=== PATIENT | male | born 1960 | race Caucasian/White ===

== ENCOUNTER 2025-08-16 22:24 | Emergency (ER) | payer BC, SELFPAY ==
[2025-08-16 22:27] VITALS: BP 149/89
[2025-08-16 23:08] VITALS: BP 146/89
[2025-08-16 23:09] VITALS: BP 148/86
[2025-08-16 23:11] VITALS: BMI 30.5
--- NOTE | 2025-08-16 23:41 | ED.GENMED ---
History of Present Illness
General
Chief Complaint: Chest Pain
Source: patient
Exam Limitations: none
Time Seen by Provider: 08/16/25 23:06
Nursing documentation reviewed up to this point in time: agreed with
History of Present Illness
History of Present Illness:
65-year-old male with a past medical history of GERD, Adams's esophagus, presents to the ER today with concerns of burning in his chest for the past 7 days. He reports that occurs intermittently and is worse with exertion. It does not resolve at
rest. It is not related to eating. He is able to eat and drink without any difficulty. He denies any dysphagia. The burning sensation is located in the center of the chest and worsens at night especially when lying to left side. Patient
experiences it every morning and has persisted throughout each day. Patient reports that he is tried multiple antacids without relief. Patient denies any associated vomiting, abdominal pain, diarrhea, constipation. Patient denies any shortness of
breath. He denies any coughing, fevers, or upper respiratory symptoms. He denies any numbness or tingling in his arms, swelling in his legs. He follows with [facility] and is due for a scope next year. The patient takes famotidine
and pantoprazole but no other medications. He does smoke tobacco products every day. He does not regularly follow with his primary care provider. He denies any paresthesias. He denies any back pain, neck pain.
Past History
Past History
ED Past Medical History: GERD (Hiatal hernia, remote history of Adams's esophagus)
ED Past Surgical History: Orthopedic (Bilateral knee arthroscopy)
Social History
Tobacco: Smoker
Alcohol: Occasional
Drug: None
Employment: Employed (Nurse practitioner)
Family History
Family History: Other (Noncontributory)
Review of Systems
Review of Systems
All Other Systems: ROS reviewed and negative except as documented in HPI and ROS
Phy Exam
Physical Exam
Physical Exam:
General: Patient is well appearing and in no acute distress; non-toxic
Skin: Warm and dry, no rashes or lesions
Head: Normocephalic, atraumatic
Eyes: Sclera non-icteric. EOMs intact.
Cardiac: Regular rate and rhythm, no murmurs, no tenderness palpation of external chest wall
Peripheral Vascular: No lower extremity swelling or edema, 2+ radial pulses bilaterally
Pulm: Normal respiratory effort, no wheezes, rales, rhonchi
Abdomen: No abdominal tenderness to palpation, no epigastric tenderness
Musculoskeletal: No tenderness palpation external chest wall
Neuro: CN II-XII intact, no focal neurologic deficits.
Psychiatric: Appropriate mood and affect.
Scores
Heart Score for Chest Pain Patients
STEMI patient?: No
History: Slightly or Non-Suspicious
ECG: Normal
Age: >45 - <65 years
Risk Factors: 1 or 2 Risk Factors
Troponin: </= Normal Limit
Heart Score for Chest Pain Patients: 2
Heart Score Risk: 2.5% MACE over next 6 weeks
Course
Orders/Labs/Results
Orders:
Orders
08/16/25 22:29
ECG [Electrocardiogram (*1)] Urgent
Reason for Study: Chest Pain
EKG- Treatment ONCE
08/16/25 22:32
Electrocardiogram (*1) Urgent
Reason for Study: Abdominal Pain
EKG- Treatment ONCE
IV Insert/Care/Rem.- Treatment PRN
08/16/25 23:03
Complete Blood Count/With Diff Urgent
Comprehensive Metabolic Panel Urgent
Lipase Urgent
Troponin I Urgent
Comment: .
Urinalysis Reflex To Culture Urgent
Date Specimen was Collected: 08/16/25
Time Specimen was Collected: 22:32
Urine Microscopic Reflex Cult Urgent
08/16/25 23:37
Mag Hydrox/Al Hydrox/Simeth [Maalox] 30 ml Phenobarb/Hyoscy/Atropine/Scop [] 10 ml Viscous Lidocaine 2% [Xylocaine Viscous Cup] 10 ml PO NOW
08/16/25 23:59
Mag Hydrox/Al Hydrox/Simeth [Maalox] 30 ml .ROUTE .STK-MED ONE
Phenobarb/Hyoscy/Atropine/Scop [] 10 ml .ROUTE .STK-MED ONE
Viscous Lidocaine 2% [Xylocaine Viscous Cup] 15 ml .ROUTE .STK-MED ONE
08/17/25 00:10
CR Chest - 2 Views Urgent
Reason For Exam: chest pain
08/17/25 00:45
Sucralfate Suspension [Carafate Suspension] 1 gm PO NOW STA
08/17/25 01:26
Troponin I Urgent
08/17/25 01:30
Electrocardiogram (*1) Urgent
Reason for Study: Chest Pain
08/17/25 01:57
Ketorolac [Toradol] 15 mg IV NOW STA
Abnormal Lab Results
08/16/25
23:03
MPV 10.8 H fL
(7.4-10.4)
Absolute Monos (auto) 0.7 H 10^3/uL
(0.1-0.6)
Glucose 143 H mg/dl
(70-99)
Urine Albumin (Reflex) 1+ A
(Neg - Trace)
08/16/25 23:03
08/16/25 23:03
Vital Signs
Initial and Last Documented VS:
Initial Vital Signs
Temp Pulse Resp BP Pulse Ox
97.6 F 86 20 149/89 98
08/16/25 22:27 08/16/25 22:27 08/16/25 22:27 08/16/25 22:27 08/16/25 22:27
Last Documented Vital Signs
Temp Pulse Resp BP Pulse Ox
97.6 F 67 16 133/86 95
08/16/25 22:27 08/17/25 02:15 08/17/25 02:15 08/17/25 02:00 08/17/25 02:15
MDM/Problems Addressed
Differential Diagnosis Includes:
Differentials include gastritis, GERD, ACS, esophagitis, pericarditis, esophageal spasm, costochondritis
MDM/Problems Addressed:
65-year-old male with past medical history of Adams's esophagus presents to the ER today with concerns of intermittent burning pain in the center of his chest. Patient suspects it is related to his reflux. Mudl-hbn-huguwuc antacids has not been
helping. He has no personal or family history of disease. Plan to obtain blood work including troponin, screening chest x-ray, ECG etc., will trial GI cocktail.
Labs reviewed, CBC unremarkable, CMP shows elevated fasting glucose otherwise unremarkable, normal LFTs. Normal lipase. Initial troponin 0.020. Will plan for repeat.
Reviewed chest x-ray, no evidence of pneumothorax, normal mediastinum normal cardiac silhouette. Patient was also given Carafate with minimal relief. Did give Toradol, patient reports that his pain is now a 1 out of 10 and he does not notice it at
present is much as before. Repeat troponin undetectable, ECG remained nonischemic. Patient stable for discharge will follow-up with chest pain hotline. Discussed strict return precautions. Patient requesting referral for new GI doctor. Patient
stable for discharge
Chronic conditions affecting care:
adams's esophagus
*Pulse Oximetry
SaO2: 97
Oxygen Mode of Delivery: Room air
Patient hypoxic: no
*EKG
Interpreted by ED Provider?: Yes
EKG Intrepretation Date: 08/16/25
Heart Rate: 80
Rate: normal
Rhythm: sinus
Interval: normal interval
Ischemia: no ischemia
*Employee Communications Intern Interpretation
Rate: normal
*Critical Care Note
Total Time (30-74mins, 75-104mins- exclusive of procedures): Not Applicable
Data Reviewed
Review of Other/Old Records Reveals: Records (Reviewed ER physician documentation from 02/08 patient seen for cholelithiasis, reviewed operative report from 06/21/2021)
Source: patient
Patient Management
Escalation/DeEscalation of care consider admission/obs:
admit not indicated, patient stable for discharge
Update Note
Update Note:
Update, 12:23 AM, patient notes no relief in chest burning with GI cocktail
ED Attending Note
-
Portions of this chart may have been created with voice recognition software.� Occasional wrong word or��sound alike� substitutions may have occurred due to the inherent limitations of voice recognition software.
Discharge Plan
Departure
Patient Disposition: Home (Routine Discharge)
Date of Disposition: 08/17/25
Time of Disposition: 02:37
Patient with high blood pressure during this ER visit?: Yes
Condition: Good
Discharge Problem:
Chest pain
Instructions: Chest Pain DCA Follow Up, BLOOD PRESSURE
Prescriptions:
No Action
pantoprazole 40 MG tablet,delayed release (DR/EC)
40 mg PO DAILY
acetaminophen 325 MG tablet
650 mg PO Q4HPRN PRN (Reason: mild pain) Qty: 1 0RF
ibuprofen 200 MG tablet
400 - 600 mg PO Q6HPRN PRN (Reason: moderate pain) Qty: 1 0RF
oxycodone 5 MG tablet
5 mg PO Q4HPRN PRN (Reason: breakthrough/severe pain) Qty: 15 0RF
Referrals:
Loyda Meeks MD [Active, Gastroenterology] - Call in 1-3 days for appt
Dontae Hoffman MD [Family Provider, Family Practice]
Activity Restrictions/Additional Instructions:
You should receive a call to set up a cardiology appointment in the next few days. Should you not receive a call, please call the attached number to schedule appointment.
Please continue to monitor your symptoms.
PLEASE RETURN TO THE ER SHOULD YOU DEVELOP ACUTE WORSENING OF YOUR SYMPTOMS, SHORTNESS OF BREATH, LIGHTHEADEDNESS, DIZZINESS, REDNESS OR SWELLING IN HER LOWER EXTREMITIES, ANY OTHER SIGNS OR SYMPTOMS WORRISOME TO YOU.
Interventions
Interventions:
*Risk Screen - Suicide Last Done: 08/16/25 22:27
*General Assessment Last Done: 08/16/25 22:27
*Neglect/Abuse Screening Last Done: 08/16/25 22:27
*ED- Fall Risk Assessment Last Done: 08/16/25 22:27
*ED COVID-19 Vaccine History Last Done: 08/16/25 22:27
*ED Influenza Vaccine History Last Done: 08/16/25 22:27
ED- Cardiac Assessment Last Done: 08/16/25 23:07
Discharge Date and Time
Print Language: YI
[2025-08-16 23:51] LABS: Hematocrit 42.4 % (39.0-52.0); Hemoglobin 14.9 g/dL (13.0-18.0); Mean Corp Hgb Conc. 35.1 g/dL (33.0-37.0); Mean Corpuscular Volume 85.8 fL (80.0-94.0); Nucleated Red Blood Cells % 0 % (-); Platelet Count 240 10^3/uL (130-400); Red Cell Dist. Width 12.6 % (11.5-14.5)
[2025-08-17] VITALS: BP 102/74
[2025-08-17] MEDS: MAALOX 50 PO
[2025-08-17 00:02] LABS: Urine Character Clear (Clear)
[2025-08-17 00:11] LABS: Urine Red Blood Cell 0-2 /HPF (0-2); Urine Squamous Cell 0-2 /LPF (Few); Urine White Cell 0-2 /HPF (0-5)
[2025-08-17 00:14] LABS: ALT (SGPT) 18 U/L (0-50); AST (SGOT) 17 U/L (17-59); Albumin 4.4 g/dl (3.5-5.0); Alkaline Phosphatase 64 U/L (38-126); Blood Urea Nitrogen 17 mg/dl (9-20); Calcium 10.0 mg/dl (8.4-10.2); Carbon Dioxide 26 mmol/L (22-30); Chloride 107 mmol/L (98-107); Estimated Creatinine Clearance 88 ml/min; Glucose 143 mg/dl (70-99); Lipase 64 U/L (23-300); Potassium 4.2 mmol/L (3.5-5.1); Sodium 137 mmol/L (135-145); Total Protein 7.4 g/dl (6.3-8.2); eGFR > 60.00
[2025-08-17 00:28] LABS: Troponin I 0.020 ng/ml
[2025-08-17] MEDS: CARAFATE SUSPENSION 1 GM PO (00:50)
[2025-08-17 01:01] VITALS: BP 141/86
[2025-08-17 01:56] LABS: Troponin I < 0.012 ng/ml
[2025-08-17 02:00] VITALS: BP 133/86
[2025-08-17] MEDS: TORADOL 15 MG IV (02:14)
== END 2025-08-17 03:05 | disposition home or self-care (01) ==
LOC: EMR 22:24
PROVIDERS: Physician Assistant; EMERGENCY PHYSICIAN Student in an Organized Health Care Education/Training Program; FAMILY PHYSICIAN Family Medicine
DX: R07.89 Other chest pain (principal); K21.9 Gastro-esophageal reflux disease without esophagitis; F17.200 Nicotine dependence, unspecified, uncomplicated; Z87.19 Personal history of other diseases of the digestive system
CPT/HCPCS: 99283; 96374; 71046; 80053; 81003; 81015; 83690; 84484; 85025; 93005

== ENCOUNTER → 2025-09-27 13:53 | Outpatient (REF) | payer BC, SELFPAY | LOC: HWRCS 13:53 | PROVIDERS: ATTENDING PHYSICIAN Internal Medicine Cardiovascular Disease; FAMILY PHYSICIAN Family Medicine | DX: R07.2 Precordial pain (principal); F17.200 Nicotine dependence, unspecified, uncomplicated | CPT/HCPCS: 93306 ==

== ENCOUNTER → 2025-09-30 10:55 | Outpatient (REF) | payer BC, SELFPAY | LOC: HWRCS 10:55 | PROVIDERS: ATTENDING PHYSICIAN Internal Medicine Cardiovascular Disease; FAMILY PHYSICIAN Family Medicine | DX: R07.2 Precordial pain (principal); F17.200 Nicotine dependence, unspecified, uncomplicated | CPT/HCPCS: 78452; 93017; A9500 ==

== ENCOUNTER 2025-10-01 07:36 | Day surgery (SDC) | payer BC, SELFPAY ==
[2025-10-01] VITALS (9 sets, daily range): BP systolic 128–148; BP diastolic 56–93; BMI 31.0
[2025-10-01] MEDS: NSS 290 ML IV (08:15)
[2025-10-01 08:27] LABS: Hematocrit 43.6 % (39.0-52.0); Hemoglobin 15.2 g/dL (13.0-18.0); Mean Corp Hgb Conc. 34.9 g/dL (33.0-37.0); Mean Corpuscular Volume 84.7 fL (80.0-94.0); Platelet Count 272 10^3/uL (130-400); Red Cell Dist. Width 12.5 % (11.5-14.5)
[2025-10-01] MEDS: LOW STRENGTH ASPIRIN 324 MG PO (08:28)
[2025-10-01 08:35] LABS: Blood Urea Nitrogen 21 mg/dl (9-20); Calcium 9.4 mg/dl (8.4-10.2); Carbon Dioxide 23 mmol/L (22-30); Chloride 108 mmol/L (98-107); Estimated Creatinine Clearance 109 ml/min; Glucose 121 mg/dl (70-99); Potassium 4.1 mmol/L (3.5-5.1); Sodium 139 mmol/L (135-145); eGFR > 60.00
[2025-10-01] MEDS: NSS 1000 IV (13:34)
--- NOTE | 2025-10-01 16:25 | ITS.CL.CATH ---
Apprentice Machinist Outside - Catheterization
Cardiac Catheterization
Procedure Report:
LEFT HEART CATHETERIZATION
Date of Procedure: October 01, 2025
Referring: Helder Ortiz MD
PROCEDURES:
1. Left heart catheterization, coronary angiogram.
2. Moderate sedation.
INDICATION: Abnormal Stress Test
ACCESS: Right radial artery, 6Fr. sheath, under US guidance.
HEMODYNAMICS : (mmHg)
AO (s/d) : 133/77
LVEDP : 22
No significant gradient across the aortic valve to suggest aortic stenosis.
CORONARY FINDINGS
Dominance: Right
Left Main Trunk (LMT): Large caliber vessel that gives rise to the LAD and LCx branches and is free of angiographic disease.
Left Anterior Descending Artery (LAD): Large caliber vessel that gives off 2 major diagonal branches as it courses along the anterior inter-ventricular groove before wrapping around the cardiac apex. LAD has 2 serial 80% stenosis in the mid vessel
with a good bypass target. D1 is a medium caliber vessel and has an ostial 70 to 75% stenosis and is also a bypass target
Left Circumflex Artery (LCx): Large caliber vessel that gives off 1 major obtuse marginal (OM) branch as it courses along the atrio-ventricular (AV) groove. Mid left circumflex into major OM1 has a eccentric 70 to 75% stenosis, and is a bypass
target
Right Coronary Artery (RCA): Large caliber dominant vessel that gives rise to the posterior descending artery (RPDA) and postero-lateral ventricular (RPLV) branches distally. Mid RCA has a 90% tubular stenosis which is hazy.
SEDATION: 27 minutes of procedural sedation was utilized. IV Midazolam and IV Fentanyl were administered. An independent biomedical engineering internship was present to assist with and help manage the patient's level of consciousness and physiologic status.
Closure Device: There were no immediate intra-procedural complications. The sheath was pulled in the construction laborer and a vascular-band applied to the right wrist for radial artery hemostasis using the patent hemostasis technique.
CONCLUSIONS
1. Significant multivessel coronary artery disease.
2. LVEDP of 22 mmHg.
RECOMMENDATIONS
1. Wean radial band per protocol. Monitor right hand perfusion and for bleeding from the radial site following removal of the vascular-band following trans-radial access.
2. Continue aggressive medical therapy and risk factor modification for secondary CAD prevention.
3. Hydrate with normal saline to mitigate the risk of contrast-induced acute kidney injury.
4. CT surgery consult as an outpatient for consideration for CABG with bypasses to LAD, D1, OM1 and RPDA.
5. Very strongly emphasized importance of complete smoking cessation
Demetrice Bateman MD, FACC, [facility]
Copy to: Helder Ortiz MD
== END 2025-10-01 14:30 | disposition home or self-care (01) ==
LOC: CATH 07:36
PROVIDERS: ATTENDING PHYSICIAN Internal Medicine Interventional Cardiology; FAMILY PHYSICIAN Family Medicine; OTHER PHYSICIAN Internal Medicine Cardiovascular Disease
DX: I25.10 Atherosclerotic heart disease of native coronary artery without angina pectoris (principal); R94.39 Abnormal result of other cardiovascular function study; Z79.82 Long term (current) use of aspirin; Z79.899 Other long term (current) drug therapy; F17.200 Nicotine dependence, unspecified, uncomplicated; K21.9 Gastro-esophageal reflux disease without esophagitis
CPT/HCPCS: 99152; 99153; 80048; 85027; 93458; C1894; Q9967

== ENCOUNTER 2025-10-12 04:48 | Inpatient (IN) | payer BC, SELFPAY ==
[2025-10-08 08:39] VITALS: BMI 31.4
[2025-10-08 09:28] LABS: Hematocrit 44.2 % (39.0-52.0); Hemoglobin 15.3 g/dL (13.0-18.0); Mean Corp Hgb Conc. 34.6 g/dL (33.0-37.0); Mean Corpuscular Volume 85.0 fL (80.0-94.0); Platelet Count 269 10^3/uL (130-400); Red Cell Dist. Width 12.3 % (11.5-14.5)
[2025-10-08 09:32] LABS: Urine Character Clear (Clear)
[2025-10-08 09:36] LABS: INR 1.13; PT 14.6 Sec (11.4-14.6)
[2025-10-08 09:43] LABS: ALT (SGPT) 16 U/L (0-50); AST (SGOT) 16 U/L (17-59); Albumin 4.3 g/dl (3.5-5.0); Alkaline Phosphatase 72 U/L (38-126); Blood Urea Nitrogen 14 mg/dl (9-20); Calcium 9.6 mg/dl (8.4-10.2); Carbon Dioxide 24 mmol/L (22-30); Chloride 105 mmol/L (98-107); Estimated Creatinine Clearance 96 ml/min; Glucose 121 mg/dl (70-99); Potassium 4.2 mmol/L (3.5-5.1); Sodium 137 mmol/L (135-145); Total Protein 7.5 g/dl (6.3-8.2); eGFR > 60.00
--- NOTE | 2025-10-08 10:39 | CM ---
spoke to pt in PAT's we discussed preop CABG teaching including sternal and driving restrictions. he is prev indep, his sister is staying with him for a while, in a 1 story home with no steps to enter. he has the ct surgery book, soap and
instructions,. he is agreeable to a f/u visit from the ct transitional care nurse after dc. plan is for CABG 10/12, cm role explained and all questions answered.
[2025-10-08 12:09] LABS: Glycohemoglobin (HgbA1c) 6.4 % (4.0-5.9)
[2025-10-12] VITALS (15 sets, daily range): BP systolic 83–152; BP diastolic 64–90; BMI 30.6
[2025-10-12] MEDS: PROTONIX 40 MG PO (05:09)
[2025-10-12] MEDS: MAGNESIUM OXIDE 400 MG PO (05:09)
[2025-10-12] MEDS: BACTROBAN 2% OINTMENT 1 APPLIC NASAL ×2 (05:10→19:51)
[2025-10-12] MEDS: LOPRESSOR 12.5 MG PO (05:25)
--- NOTE | 2025-10-12 05:30 | PTCARENOTE ---
pt admitted into room 2263. VS and weight obtained. pt confirms 2 showers @ home and NPO since midnight except for 25mg lopressor and 40mg protonix around 0100 this morning - CT PA notified. 12.5mg lopressor given for pre-op dosage. clip prep and
CHG cloth bath done. ABO drawn and sent. admission questions and med rec completed. all questions answered. pt's sister, Rita, at bedside.
--- NOTE | 2025-10-12 06:38 | W.CVOR.SURPR ---
CVOR Surgeon Immed Pre Op
-
I have examined this patient prior to performance of the scheduled procedure.
The patient's condition is unchanged from the time of the dictated/written History and
Physical and the patient is able to undergo the scheduled procedure.
--- NOTE | 2025-10-12 08:54 | CM ---
Reviewed chart. Mr. Rea is in the operating room today. Prior to admission he resides alone in a one story home without any steps to enter. His sister will be staying with him for awhile .. Will need to see his functional status after surgery
to see if he has any skilled care needs. Medical work-up in progress. The discharge plan is to return home with with his sister staying with him and a home visit by the Transitional Care Nurse when medically stable.
[2025-10-12 09:14] LABS: Urine Character Clear (Clear)
[2025-10-12 09:17] LABS: ACT+ - POC 151 Seconds (82-134)
[2025-10-12 10:52] LABS: ACT+ - POC 792 Seconds (82-134)
[2025-10-12 11:38] LABS: B.E. - POC -1.1 mmol/L; Glucose - POC 131 mg/dl (70-99); HCO3 - POC 25 mmol/L (21-28); Hematocrit - POC 36 % PCV (42-52); Hemodilution- POC No; Hemoglobin Calculated - POC 12.1; Ionized Calcium - POC 1.25 mmol/L (1.15-1.33); Lactate - POC 0.60 mmol/L (0.36-0.75); O2 Saturation %Calculated-POC 99.3 % (94-98); PCO2 - POC 48 mmHg (35-48); PO2 - POC 164 mmHg (83-108); Potassium - POC 3.9 mmol/L (3.5-5.1); Sodium - POC 140 mmol/L (136-145); Specimen Type - POC Arterial; pH - POC 7.33 (7.35-7.45)
[2025-10-12 11:51] LABS: ACT+ - POC 624 Seconds (82-134)
[2025-10-12 12:16] LABS: B.E. - POC 2.7 mmol/L; Glucose - POC 121 mg/dl (70-99); HCO3 - POC 27 mmol/L (21-28); Hematocrit - POC 25 % PCV (42-52); Hemodilution- POC Yes; Hemoglobin Calculated - POC 8.6; Ionized Calcium - POC 1.02 mmol/L (1.15-1.33); Lactate - POC 1.40 mmol/L (0.36-0.75); O2 Saturation %Calculated-POC 100.0 % (94-98); PCO2 - POC 38 mmHg (35-48); PO2 - POC 427 mmHg (83-108); POC Comment CPB; Potassium - POC 5.7 mmol/L (3.5-5.1); Sodium - POC 138 mmol/L (136-145); Specimen Type - POC Arterial; pH - POC 7.45 (7.35-7.45)
[2025-10-12 12:24] LABS: ACT+ - POC 552 Seconds (82-134)
[2025-10-12 12:44] LABS: B.E. - POC 2.4 mmol/L; Glucose - POC 147 mg/dl (70-99); HCO3 - POC 27 mmol/L (21-28); Hematocrit - POC 29 % PCV (42-52); Hemodilution- POC Yes; Hemoglobin Calculated - POC 9.9; Ionized Calcium - POC 1.07 mmol/L (1.15-1.33); Lactate - POC 1.59 mmol/L (0.36-0.75); O2 Saturation %Calculated-POC 99.7 % (94-98); PCO2 - POC 38 mmHg (35-48); PO2 - POC 197 mmHg (83-108); Potassium - POC 5.4 mmol/L (3.5-5.1); Sodium - POC 139 mmol/L (136-145); Specimen Type - POC Arterial; pH - POC 7.45 (7.35-7.45)
[2025-10-12 12:55] LABS: ACT+ - POC 500 Seconds (82-134)
[2025-10-12 13:20] LABS: B.E. - POC 1.0 mmol/L; Glucose - POC 173 mg/dl (70-99); HCO3 - POC 25 mmol/L (21-28); Hematocrit - POC 32 % PCV (42-52); Hemodilution- POC Yes; Hemoglobin Calculated - POC 11.0; Ionized Calcium - POC 1.04 mmol/L (1.15-1.33); Lactate - POC 1.78 mmol/L (0.36-0.75); O2 Saturation %Calculated-POC 99.8 % (94-98); PCO2 - POC 37 mmHg (35-48); PO2 - POC 226 mmHg (83-108); Potassium - POC 5.3 mmol/L (3.5-5.1); Sodium - POC 140 mmol/L (136-145); Specimen Type - POC Arterial; pH - POC 7.44 (7.35-7.45)
[2025-10-12 13:24] LABS: ACT+ - POC 126 Seconds (82-134)
[2025-10-12 13:39] LABS: B.E. - POC -3.0 mmol/L; Glucose - POC 144 mg/dl (70-99); HCO3 - POC 22 mmol/L (21-28); Hematocrit - POC 25 % PCV (42-52); Hemodilution- POC Yes; Hemoglobin Calculated - POC 8.7; Ionized Calcium - POC 1.16 mmol/L (1.15-1.33); Lactate - POC 1.81 mmol/L (0.36-0.75); O2 Saturation %Calculated-POC 98.1 % (94-98); PCO2 - POC 38 mmHg (35-48); PO2 - POC 108 mmHg (83-108); Potassium - POC 4.0 mmol/L (3.5-5.1); Sodium - POC 141 mmol/L (136-145); Specimen Type - POC Arterial; pH - POC 7.37 (7.35-7.45)
--- NOTE | 2025-10-12 14:13 | W.PN.CT.SURG ---
CT Surgery Operative Note
-
CARDIAC SURGERY OPERATIVE REPORT
Preoperative Diagnosis: Multivessel Coronary Artery Disease with angina
Postoperative Diagnosis: Same
Procedure(s) Performed:
1. Standard Sternotomy with Aortic and Right Atrial Cannulation
2. Internal Mammary Artery Harvesting, Left
3. Coronary artery bypass grafting x 4 (In situ VARGHESE to LAD, Ao to RSVG to R PLB, Ao to RSVG to OM1, Ao to RSVG to diagonal)
4. Endoscopic vein harvesting of bilateral lower extremities
5. Transesophageal echocardiography
6. Placement of Temporary Ventricular Pacing Wires
7. Left atrial appendage ligation using AtriClip device (35mm)
Date of Surgery: 10/12/2025
Comorbidities:
1. Smoking history
2. Hypertension
Attending Surgeon: Herlinda Nunez MD, MPH
Assistants: Benita Golden PA-C, Ravinder Brown PA-C (present and necessary to visitor services information assistant, endoscopic vein harvest, retraction, suction, exposure, suture management, and wound closure under my direction)
Anesthesiology: Binh Forbes MD and Latosha Baez CRNA
Scrub and Circulating RNs: Steffen Coates RN, Marge Perez RN
Real Estate Operations Manager: Keturah Simon CCP
Anesthesia: GETA
EBL: per perfusion records
Products: None
CPB Time: 118 minutes
Aortic Cross Clamp Time: 94 minutes
Indication(s) for Procedures: 65-year-old male presented with escalating angina, left heart cath consistent with multivessel coronary artery disease.
Conduit(s) Quality:
VARGHESE -excellent conduit free of disease and good caliber
RSVG -the initial vein harvested from the right side had good quality conduit in the upper portion with very small caliber in the lower portion that had come out of the calf. We obtained another length of vein from the left thigh.
Target(s) Quality:
R PLB -there are multiple small branches coming off of the terminal RCA with the largest being the PLB. This was free of disease with a good lumen size. Flow through cardioplegia 40 cc/min at 80 mmHg, flow probe shows 34 cc/min and PI 2.6.
OM -this was moderate-sized vessel had approximately 1 mm in caliber lumen size with mild plaque in the posterior wall. Flow with 3 cardioplegia was 40 cc/min at 80 mmHg, flow probe shows 18 cc/min and PI 5.
Diagonal - this was a moderate-sized vessel that easily passed 1 mm probe and was a good target site. Flow through cardioplegia 50 cc/min at 80 mmHg, flow probe shows 14 cc/min and PI 2.1
LAD -this is a large vessel with great target and large lumen in the mid to distal vessel. Flow shows 12 cc/min and PI 2.7
Findings: LJ prior to the procedure beginning showed normal EF 65% with mild , gradient 11 with MILAGRO 1.4 and mild MR. At the conclusion of the case EF was at baseline 65% with valvular findings also at baseline, mild and trace to mild MR.
There were no regional wall motion abnormalities. The VARGHESE was harvested in a skeletonized fashion. Following bypass grafting, test dose cardioplegia was given down each distal and confirmed patency and hemostasis. Each distal was probed both
proximally and distally to confirm disease and patency, respectively.
Description of Procedure: The patient was taken to the operating room. Their identity and procedure to be performed were verified and they were positioned supine on the operating table. Induction via general anesthesia with endotracheal intubation
was performed and central venous access and arterial monitoring were inserted. A preoperative transesophageal echocardiogram was performed to assess cardiac function and valvular function. The patient was then prepped and draped from chin to feet in
a sterile fashion. A preoperative time-out was performed with all members of the team present. A midline chest incision was performed along with median sternotomy. Simultaneous endoscopic access of bilateral lower extremities for saphenous vein
harvest was obtained along with administration of an initial 5,000 units of IV heparin. A RulTract sternal retractor was positioned to exposure the left internal mammary bed. The mammary was harvested and found to have good flow. A medium clip was
applied to the distal end of the mammary after dividing it. It was wrapped in a papaverine soaked RayTec and replaced back into the left hemithorax. The RulTract was exchanged for a median sternal retractor. The innominate vein was isolated. Full
heparinization was given (a total of 45,000 units). We created a pericardial well. The aortic cannulation site was chosen where it was soft, pliable, and free of calcium. Cannulation was performed with an arterial cannula in the ascending aorta and
a triple-stage venous cannula through the right atrial appendage. The arterial cannula line had an appropriate bounce and correlating pressures with test dosing. Next, a root vent/antegrade cannula was inserted into the ascending aorta. The ACT was
confirmed to be over 400 and retrograde autologous priming was performed before commencing cardiopulmonary bypass. The pulmonary artery was away from the aorta to facilitate a clamp site. The aortic cross-clamp was placed after decreasing
the flow on the bypass and mean arterial pressure. A total of 1.2L initial dose of antegrade Del-Nido cardioplegia solution was given and planned for re-dosing every 75 minutes as necessary. We did not obtain a good cardiac arrest after almost 2 L
of cardioplegia and troubleshooting for potential persistent left SVC a placed cross-clamp. We discovered that our aortic cannula was facing the root which was rapidly reperfusing us and preventing an arrest. Once this was corrected and LJ was
used to evaluate the aorta which showed no concern for dissection flap or injury, we re-cross clamped and there was rapid electro-mechanical arrest of the heart at 250 cc of cardioplegia. The left ventricle was observed for distention on
echocardiogram and manual palpation. Cold slush was placed into a sponge and topically on the RV while we systemically cooled to 34 degrees centigrade.
First we positioned the heart to expose the left atrial appendage which was inspected visually for size. We chose a 35 mm AtriClip device and satisfactorily placed it at the base of the left atrial appendage. I positioned the heart to expose the
distal right coronary at the posterior lateral vessel. A [place] blade was used to expose the coronary and perform the arteriotomy. Coronary Deleon scissors were used to enlarge the incision. The saphenous vein was trimmed and beveled to an
appropriate size. The distal anastomosis was performed using 7-0 prolene in an end-to-side fashion. Antegrade cardioplegia was administered into the graft. Appropriate hemostasis and flow were confirmed. The graft was measured for length to the
aorta and cut. A suitable site on the first obtuse marginal was chosen. We dissected and prepared the distal target in a similar fashion. An end-to-side anastomosis was created with a 7-0 prolene. Antegrade cardioplegia was administered into the
graft. Appropriate hemostasis and flow were confirmed. The graft was measured for length to the aorta and cut. A suitable site on the diagonal was chosen. We dissected and prepared the distal target in a similar fashion. An end-to-side anastomosis
was created with a 7-0 prolene. Antegrade cardioplegia was administered into the graft. Appropriate hemostasis and flow were confirmed. The graft was measured for length to the aorta and cut. A suitable target on the mid to distal left anterior
descending was identified. We dissected and prepared the distal target in a similar fashion. We retrieved the VARGHESE from the chest and created a pericardial opening while being cognizant of the phrenic nerve to facilitate the course of the mammary.
The distal end of the mammary was prepped and beveled to size. We verified orientation and length of the ALEK and found brisk flow. An end-to-side anastomosis was created with a 7-0 prolene. We temporarily released the bulldog clamp on the mammary to
inspect flow. Perfusion to the LAD territory was visualized and hemostasis was confirmed. The bull clamp was replaced on the mammary. The heart was filled and the root was distended with antegrade cardioplegia to make final assessment of graft
length and orientation. We created 3 aortotomies using a #11 blade then a 4.0mm aortic punch. The proximal anastomoses were created in an end-to-side fashion using 6-0 prolene. At the the same time, we re-warmed to 36.5 degrees centigrade. The
bulldog clamp was removed from the mammary. Temporary bipolar ventricular pacing wires were placed on the base of the right ventricle. The patient was placed in a Trendelenburg position and flows on bypass were lowered. The aortic cross clamp was
removed and flows were slowly brought back up. All bypass grafts were inspected and were free from kinking or twisting. The distal and proximal anastomoses appeared hemostatic. Once transesophageal echocardiography appeared satisfactory for
de-airing, the flows were temporarily lowered for root vent removal. After verifying acceptable parameters, we initiated weaning from cardiopulmonary bypass. Once we were off cardiopulmonary bypass, the venous cannula was clamped and removed. A test
dose of protamine was administered and the patient was monitored for any adverse reaction before resuming protamine. Once half of the protamine dose was delivered, pump suckers were turned off and the systolic blood pressure was lowered for aortic
decannulation. The aortic cannula was removed and pursestrings were tied down. All cannulation sites were oversewn with a 4-0 prolene. The mammary bed was inspected and hemostasis was confirmed. Once the mediastinum was hemostatic, 19Fr Jarrett drain
was placed in the left pleural cavity and two 24Fr Jarrett drains were placed within the pericardium. The sternum was approximated with 4 #7 single and 3 #8 double stainless steel wires. Fascia was approximated with #1 vicryl suture. The subcutaneous,
dermis and epidermis were closed in layers in a running fashion. The skin wound was cleansed and dressed.
All instrument, sponge, and needle counts were confirmed to be correct x 2 at the end of the operation. The patient was transferred to the cardiac intensive care unit in critical but stable condition.
I, Dr. Herlinda Nunez, was present, scrubbed for, and performed all critical elements of this procedure.
Herlinda Nunez MD, MPH
Cardiothoracic Surgeon
[facility]
This operative dictation was created using the [employer] dictation system. Please excuse any grammatical, typographical, or 'sound alike' errors
--- NOTE | 2025-10-12 14:28 | W.PN.CARDCBS ---
Addendum entered and electronically signed by Christopher Leavitt DO 10/12/25 16:29:
I saw and examined the patient.
The Knotter's note was reviewed and I agree with the note.
Comment:
Plan:
Compensated cv status
Cont post op care
Remains sinus
Wean pressors as able.
Discussed with nursing.
Original Note:
Today's Communication / Plan
-
continue post op care
in SR
Impression / Plan
-
Primary Contracting Executive: Dr. Ortiz
Assessment:
Multivessel CAD status post CABG x 4 In situ VARGHESE to LAD, Ao to RSVG to R PLB, Ao to RSVG to OM1, Ao to RSVG to diagonal, LIDA clip 10/12/2025
Hyperlipidemia
Hypertension
Prediabetes/impaired fasting glucose
GERD/Lopez's esophagus
Tobacco use
ECHO 09/27/25: EF 64%, mild with peak/mean gradients 24/13 mmHg, MILAGRO 1.5 cm�, trace AR, no regional wall motion is noted
Plan:
-status post CABG x 4 In situ VARGHESE to LAD, Ao to RSVG to R PLB, Ao to RSVG to OM1, Ao to RSVG to diagonal, LIDA clip 10/12/2025
-intubated, sedated
-on levo@6, insulin @4. wean as able
-post op EKG SR with 1st degree av block and NSSTS
-hgb 11.2 with plts 209K
-continue statin
-continue post op care
-preop was on norvasc 2.5mg daily and toprol 25mg daily
-d/w nursing
Progress Note - Contracting Executive
Subjective
Date of Service: October 12, 2025
intubated, sedated
Objective
Labs:
Labs
Hgb 15.3 g/dL (13.0-18.0) 10/08/25 08:55
Hct 44.2 % (39.0-52.0) 10/08/25 08:55
Plt Count 269 10^3/uL (130-400) 10/08/25 08:55
PT 14.6 Sec (11.4-14.6) 10/08/25 08:55
INR 1.13 10/08/25 08:55
Sodium 137 mmol/L (135-145) 10/08/25 08:55
Potassium 4.2 mmol/L (3.5-5.1) 10/08/25 08:55
BUN 14 mg/dl (9-20) 10/08/25 08:55
Creatinine 0.9 mg/dL (0.7-1.3) 10/08/25 08:55
Glucose 121 mg/dl (70-99) H 10/08/25 08:55
Vital Signs and I&O:
Vital Signs
Temp Pulse Resp BP Pulse Ox
98.2 F 73 18 150/90 97
10/12/25 04:59 10/12/25 04:59 10/12/25 04:59 10/12/25 04:57 10/12/25 04:59
Vital Signs
Temp Pulse Resp BP Pulse Ox
98.2 F 73 18 150/90 97
10/12/25 04:59 10/12/25 04:59 10/12/25 04:59 10/12/25 04:57 10/12/25 04:59
Physical Exam
Physical Exam
GEN: No distress, intubated, sedated
HEENT: supple, mmm
LUNGS: CTA B/L, no wheezes/rales
CV: Reg, S1/S2, no murmur, + rub
ABD: soft, NT/ND
EXT: No cyanosis, clubbing, edema
NEURO: sedated
SKIN: Warm, pink, dry. No rash. Sternotomy incision c/d/i. CTs in place
[2025-10-12 14:40] LABS: Glucose - Point of Care 174 mg/dl (70-99)
[2025-10-12 14:46] LABS: B.E. -0.3 mmol/L; HCO3 25.4 mmol/L (21-28); O2 Saturation % 98.2 % (94-98); PCO2 45 mmHg (35-48); PO2 87 mmHg (83-108); Potassium 4.1 mMOL/L (3.5-5.1); Sodium 137 mMOL/L (136-145)
[2025-10-12 14:55] LABS: Hematocrit 32.1 % (39.0-52.0); Hemoglobin 11.2 g/dL (13.0-18.0); Platelet Count 209 10^3/uL (130-400)
[2025-10-12] MEDS: ANCEF 10 IV ×2 (14:58)
[2025-10-12] MEDS: NSS 500 IV (14:58)
[2025-10-12] MEDS: NOVOLOG FLEXPEN SC ×2 (14:58→15:14)
[2025-10-12] MEDS: CALCIUM GLUCONATE 100 IV (14:59)
[2025-10-12] MEDS: TYLENOL PO ×2 (14:59→22:23)
[2025-10-12] MEDS: PACERONE PO (15:01)
[2025-10-12] MEDS: NEURONTIN PO (15:01)
[2025-10-12 15:02] LABS: APTT 29.5 Sec (23.4-35.0); INR 1.56; PT 18.8 Sec (11.4-14.6)
--- NOTE | 2025-10-12 15:05 | CON.INTV ---
Consultation
Consultation Request
Date/Time Consultation Requested: 10/12/2025
Date/Time Consultation Performed: 10/12/2025
Requesting Provider: Dr. Nunez
Performing Provider: Dr. Amrit Subramanian
Reason for Consultation: Status post coronary artery bypass
Medical History
-
History of Present Illness:
65-year-old male with past medical history significant for hypertension, GERD who was evaluated by CT surgery in the outpatient setting for abnormal stress test. Subsequently underwent cardiac catheterization that demonstrated multivessel coronary
artery disease. He was deemed candidate for surgical revascularization.
Underwent coronary artery bypass on 10/12/2025.
Critical care consulted for postoperative management. Patient currently intubated and on mechanical ventilation.
Records reviewed.
Patient unable to provide history.
Appears comfortable mechanical ventilation.
Chest tube in place without significant drainage or air leak.
Past Medical History
Past Medical History: Other (See assessment and plan)
Social History
Tobacco: Former Smoker
Alcohol: None
Drug: None
Personal:
Living: Other (With sister)
Family History
Family History: Reviewed & Not Pertinent
Allergies / Home Medications
Allergies
Allergy/AdvReac Type Severity Reaction Status Date / Time
No Known Allergies Allergy Verified 10/06/25 15:51
Home Medications
�Medication �Instructions �Recorded �Confirmed �Last Taken �Type
pantoprazole 40 mg tablet,delayed 40 mg PO DAILY 03/13/21 10/12/25 10/12/25 01:00 History
release
amlodipine 2.5 mg tablet 2.5 mg PO DAILY #30 tabs 10/01/25 10/12/25 10/05/25 Rx
aspirin 81 mg tablet 81 mg PO DAILY 10/01/25 10/12/25 10/05/25 History
ibuprofen 200 mg tablet 400 - 600 mg PO Q6HPRN PRN 10/01/25 10/12/25 10/05/25 History
moderate muscle pain
metoprolol succinate 25 mg 25 mg PO DAILY 10/01/25 10/12/25 10/12/25 01:00 History
tablet,extended release 24 hr
nitroglycerin 0.4 mg sublingual 0.4 mg sublingual [id number] PRN 10/01/25 10/06/25 Unknown Rx
tablet chest pain #25 tabs
rosuvastatin 40 mg tablet 40 mg PO DAILY #30 tabs 10/01/25 10/12/25 10/10/25 Rx
Review of Systems
-
History Source: Patient
All other systems: Negative unless noted
Vitals / Labs / Diagnostic Testing
Vital Signs
Temp Pulse Resp BP Pulse Ox
98.5 F 71 13 94/68 96
10/12/25 15:00 10/12/25 15:00 10/12/25 15:00 10/12/25 15:00 10/12/25 15:01
Laboratory Results
10/12/25
14:31
PT 18.8 H
INR 1.56
APTT 29.5
pH 7.36
pCO2 45
pO2 87
HCO3 25.4
O2 Delivery Level
Microbiology
10/08/25 08:55 Nose MRSA Screen - Final
No Methicillin Resistant Staphylococcus aureus isolated.
Diagnostic Testing:
Physical Exam
-
HEENT: Normocephalic
Cardiovascular: S1/S2
Respiratory: Non-Labored Respirations and Other (ET tube in place without secretion)
GI: Soft and Non Distended
Neurology: Other (Sedated and on mechanical ventilation.)
Skin: Warm
General: Respiratory Distress
Assessment
-
Status post coronary artery bypass 10/12/2025
Postoperative mechanical ventilation
Conditions present prior admission:
Hypertension
Former light smoker
GERD
Assessment and plan:
He is doing well postop-currently on mechanical ventilation and appears comfortable.
ABG reviewed: Adequate oxygenation and ventilation.
Continue SIMV mode with no change
Spontaneous breathing trial per protocol once sedation wears off.
Anemia noted-no evidence of acute bleeding
Follow H&H serially
Hemodynamics -acceptable-not on any vasoactive drugs
Adequate urinary output-follow
Kidney function is normal
Chest tube with no excessive drainage-no air leak.
Chest x-ray reviewed: With no pneumothorax or fluid collections.
Remain nothing by mouth
Head of the bed elevation
Glycemic control per protocol
DVT prophylaxis when safe from the surgical perspective.
Critical care statement: A total of 31 minutes of critical care time was provided for this patient today. This includes management of unstable vital signs, evaluation of the patient at bedside, reviewing the patient's pertinent medical records
including ventilator settings, arterial blood gases, radiographs, microbiology, laboratory evaluations and discussion with primary team, critical care nursing, and respiratory therapy.
Data reviewed:
Cardiac catheterization 10/01/2025:
1. Significant multivessel coronary artery disease.
2. LVEDP of 22 mmHg.
Stress test 09/30/2025:
Positive stress ECG for ischemia. [address] depression in inferolateral leads
Moderate to large severe partially reversible inferior and inferolateral defect consistent with ischemia or infarction with residual ischemia
Echocardiogram 09/27/2025: Mild AAS.
LVEF is normal.
No significant valvular abnormalities.
[2025-10-12 15:13] LABS: Blood Urea Nitrogen 15 mg/dl (9-20); Estimated Creatinine Clearance > 125 ml/min; Glucose 153 mg/dl (70-99); Magnesium 3.1 mg/dl (1.6-2.3)
--- NOTE | 2025-10-12 15:30 | PTCARENOTE ---
pt received from [facility] @~1440, sedated on Precedex gtt, RASS -5. SR w/ 1st degree AVB on the monitor, HR 70s. V-wires in place, pacer box off. CVP~7. palpable pulses. SBP 90-110s, Levophed gtt titrated as ordered. pt mechanically ventilated, ETT
#8.0, 23cm@lip. SIMV 12, TV 600, PEEP 5, FIO2 40%. 94-99% POX. lungs clear anteriorly. CTx3, no air leak or crepitus noted. pt abdomen s/n, hypoactive BS. Hernandez in place, clear yellow urine. sternal incision EULA, approximated. chest tube site c/d/i.
L groin puncture, LICENSED MENTAL HEALTH PROFESSIONAL. b/l LE FANNIE bandages in place. RIJ Cordis/slick in place. L radial [place] flushed, zeroed, and calibrated. PIV. insulin gtt running as ordered. lab work drawn, EKG performed, CXR completed. lytes replaced. see worklist for VS,
I&O, and assessment.
[2025-10-12 15:46] LABS: Hepatitis B Surface Antigen Negative (Negative)
[2025-10-12 15:54] LABS: Glucose - Point of Care 169 mg/dl (70-99)
[2025-10-12 16:03] LABS: Hepatitis C Antibody Negative (Negative)
[2025-10-12] MEDS: DILAUDID 0.5 MG IV ×2 (16:11→20:39)
--- NOTE | 2025-10-12 16:13 | W.PN.UPDATE ---
Update Note
Progress Note Update
65-year-old male was electively admitted on 10/12/2025 for CABG due to exertional angina and found to have triple-vessel coronary disease on left heart catheterization.
IV fluids: 1000
U.O.:� 800
Blood:� none
Wires:� V-wires
Drips: Levo @ 6, Precedex, Insulin
�
NEURO: sedated, pupils +2mm B/L
RESP: #8OT @23cm> 500/100%/14/5. Lungs clear B/L. 2 mediastinal (5cc on arrival) and L pleural (5cc on arrival) chest tubes to -20cm suction. Sanguineous drainage
CV: RRR +S1, S2, no S3, no�rub, no murmur. Dermabond to median sternotomy. RIJ w/Slik
ABD: round, soft, no BS
EXT: no edema, +2/4 DP pulses B/L, no femoral bruit, XX
B/L LE FANNIE wrap intact; left radial A-line intact
: Hernandez with clear yellow urine
�
A/P: POD #0 s/p CABG x 4 (VARGHESE to LAD, SVG to R PLB, SVG to OM1, SVG to diagonal), Left atrial appendage ligation #35mm AtriClip
LJ: report pending
- wean and extubate
- goal SBP 90-120
- wean Levophed to maintain above SBP parameters
# CAD s/p CABG
- will require ASA, Plavix, statin, beta ramirez
- radial artery harvest as palmar arch incomplete
�
# acute surgical blood loss anemia-expected
- trend CBC
# Lopez's esophagus
- continue Protonix 40mg daily
# Pre-diabetes (A1C 6.4)
- Insulin infusion x 48h
�- no meds @ home
- plan advance to cardiac 1800 molina diet
# Class I obesity (BMI 30.6)
- education for calorie/carb reduced diet
--- NOTE | 2025-10-12 16:26 | PTCARENOTE ---
pt nods appropriately, ZAPATA, opens eyes to voice. pt nodded head yes to pain, PRN Dilaudid 0.5mg IVP given. pt placed on CPAP trial @~1620.
[2025-10-12] MEDS: LR 250 ML IV ×2 (16:30→18:32)
[2025-10-12 17:09] LABS: Glucose - Point of Care 144 mg/dl (70-99)
[2025-10-12 17:16] LABS: B.E. - POC 0.4 mmol/L; Blood Urea Nitrogen - POC 14 mg/dl (3-120); Chloride - POC 110 mmol/L (96-111); Creatinine - POC 1.01 mg/dl (0.3-1.0); Glucose - POC 151 mg/dl (70-99); HCO3 - POC 26 mmol/L (21-28); Hematocrit - POC 31 % PCV (42-52); Hemodilution- POC No; Hemoglobin Calculated - POC 10.5; Ionized Calcium - POC 1.19 mmol/L (1.15-1.33); Lactate - POC 1.52 mmol/L (0.36-0.75); O2 Saturation %Calculated-POC 97.3 % (94-98); PCO2 - POC 43 mmHg (35-48); PO2 - POC 96 mmHg (83-108); Potassium - POC 3.9 mmol/L (3.5-5.1); Sodium - POC 142 mmol/L (136-145); Specimen Type - POC Arterial; pH - POC 7.38 (7.35-7.45)
[2025-10-12] MEDS: OFIRMEV 100 IV (17:24)
[2025-10-12] MEDS: ALBUMIN 5% 250 IV (17:48)
--- NOTE | 2025-10-12 17:52 | PTCARENOTE ---
TRUCK DRIVER FLATBED at bedside for EPOC, pt extubated to 6LNC, 97% POX. oriented x4, hoarse voice, ZAPATA. LR bolus x1 given, TRUCK DRIVER FLATBED aware of levo@7mcg/min. Albumin ordered and given. pt c/o pain, given PRN Ofirmev.
[2025-10-12 18:06] LABS: Glucose - Point of Care 127 mg/dl (70-99)
[2025-10-12 18:32] LABS: Hematocrit 31.9 % (39.0-52.0); Hemoglobin 11.2 g/dL (13.0-18.0); Platelet Count 259 10^3/uL (130-400)
[2025-10-12 19:07] LABS: Glucose - Point of Care 139 mg/dl (70-99)
[2025-10-12] MEDS: SENOKOT 8.6 MG PO (19:50)
[2025-10-12] MEDS: LOW STRENGTH ASPIRIN 81 MG PO (19:50)
[2025-10-12] MEDS: ANCEF 5 IV (19:50)
[2025-10-12] MEDS: DILAUDID 0.25 MG IV (19:51)
[2025-10-12 21:03] LABS: Glucose - Point of Care 150 mg/dl (70-99)
[2025-10-12] MEDS: CALCIUM GLUCONATE 130 MG IV (21:04)
--- NOTE | 2025-10-12 21:05 | PTCARENOTE ---
Assumed care of pt from dayshift RN. Walking rounds completed. Pt AAOx4. Appropriate. SR on the tele monitor. HR 70-80s. Temporary epicardial v-wire intact, received w/ box off. BP stable. CVP ~4-8. 90-110s/50-60s. Levo infusing to keep SBPs
90-120. B/L radial pulses palpable. B/L DP pules weak on palpation. Pt received 97% on 6 L NC. Titrated to 4 L NC. POX now ~ 95%. Mediastinal CTx2 and L pleural CT to -20 suction, no airleaks noted, and output as documented. Deep breathing and IS
encouraged. Abdomen soft. Hypoactive BS. Hernandez catheter intact and draining yellow urine. All surgicals sites stable at this time. Right IJ cordis w/ slic, right radial a-line, and right wrist 18 intact. All lines leveled/zeroed/flushed. Glycemic
protocol followed. Pt repositioned as documented. See MAR for pain medication. 3g calcium gluconate per CT JACEY. Call luna within reach.
[2025-10-12] MEDS: NEURONTIN 100 MG PO (22:22)
[2025-10-12] MEDS: PACERONE 200 MG PO (22:22)
[2025-10-12 23:03] LABS: Glucose - Point of Care 151 mg/dl (70-99)
[2025-10-12] MEDS: ROXICODONE 5 MG PO (23:05)
[2025-10-13] VITALS (29 sets, daily range): BP systolic 93–128; BP diastolic 56–80; PULSE 92; O2SAT 94–97; BMI 31.3
[2025-10-13 00:15] LABS: Glucose - Point of Care 145 mg/dl (70-99)
--- NOTE | 2025-10-13 00:26 | W.PN.CT ---
Today's Communication / Plan
-
Plan:
-No major issues overnight. Hemodynamically and neurologically intact
-Pt was successfully extubated this morning 10/12/25 @ 1718
-Weaned off Levophed overnight, remains on insulin gtt per protocol
-U/O since OR 1510 mL
-Monitor chest tube drainage: 2meds 90/100, L pleural 55/100. F/U AM CXR
-Maintain temporary PW, will likely pull tomorrow
-EKG c/w acute pericarditis, +rub. Received 1 dose of Toradol, started on Colchicine
-Cont. current meds (ASA, Plavix, Amiodarone, Toprol XL, Crestor, Protonix)
-D/C'd SLIC and A-line this AM @ 0445
-Will D/C lozada @ 12 pm
-Will transition off insulin gtt today per protocol and transfer to telemetry phase. Will consult Diabetes education/management regarding prediabetes, A1C 6.4
-Maintain cordis
-Encourage use of IS
-Wean off O2 as tolerated
-OOB into chair/Ambulate
Assessment / Plan
-
Assessment:
-S/P Standard Sternotomy/Coronary artery bypass grafting x 4 (In situ VARGHESE to LAD, Ao to RSVG to R PLB, Ao to RSVG to OM1, Ao to RSVG to diagonal)/Endoscopic vein harvesting of bilateral lower extremities/Left atrial appendage ligation using
AtriClip device (35mm), by Dr. Nunez, 10/12/25, pod#1
-Severe 3v CAD
-Hypertension
-Hyperlipidemia
-LVEF 64%
-GERD/Lopez's esophagus
-Class 1 obesity (BMI 30.6)
-Prediabetes (A1C 6.4)
-Former tobacco use
-S/P ACL repair, 1984
-S/P Lap Kelly, 06/21/21
-Acute postop blood loss/Anemia (stable without transfusion)
-Acute postop atelectasis
-Acute postop hypovolemia with subsequent hypervolemia
-Acute postop pericarditis
Discussed patient care with: Cardiology, Nursing, Respiratory Therapy, Pharmacy and Care Team
Subjective
Procedure
S/P Standard Sternotomy/Coronary artery bypass grafting x 4 (In situ VARGHESE to LAD, Ao to RSVG to R PLB, Ao to RSVG to OM1, Ao to RSVG to diagonal)/Endoscopic vein harvesting of bilateral lower extremities/Left atrial appendage ligation using AtriClip
device (35mm), by Dr. Nunez, 10/12/25
-
Date of Service: October 13, 2025
C/o incisional pain, otherwise feels well
Objective Data
-
PT 18.8 Sec (11.4-14.6) H 10/12/25 14:31
INR 1.56 10/12/25 14:31
APTT 29.5 Sec (23.4-35.0) 10/12/25 14:31
Vital Signs
Vital Signs
Temp Pulse Resp BP Pulse Ox
99.1 F 76 16 112/75 95
10/13/25 00:00 10/13/25 00:00 10/13/25 00:00 10/12/25 23:00 10/13/25 00:00
CT Intake/Output/Weight
10/12/25 10/12/25 10/13/25
06:59 18:59 06:59
Intake Total 710.8 / 1183.8 473.0 / 1183.8
Output Total 915 / 1415 500 / 1415
Balance -204.2 / -231.2 -27.0 / -231.2
SaO2: 95 (2L)
Physical Exam
-
General: Awake, Oriented and AOx3
Cardiovascular: Regular rate & rhythm, No Murmurs, Rub (likely from ) and No Gallop
Respiratory: Decreased Breath Sounds (at bases, otherwise clear)
Sternum: Stable
Incision: Clean, Dry, Intact and Dressing Intact
Extremities: Other (+trace edema)
Data Reviewed
-
Lab Results: Results Reviewed
Medications: Active Meds Reviewed
Chest X-Ray: Report Reviewed and Image Reviewed
ECG: Report Reviewed and Image Reviewed
--- NOTE | 2025-10-13 00:29 | PTCARENOTE ---
No acute changes in assessment. Pt SR on the tele monitor. HR 70-80s. BP stable. 100/50-60s. Levo titrated off. CVP ~7. Pt on 4 L NC. POX 95%. CTx3 assessment unchanged. Hernandez catheter intact and draining yellow urine. CVP/a-line
leveled/zeroed/flushed. Pt repositioned as documented. See MAR for pain medication administration. Glycemic protocol followed. Call luna within reach.
[2025-10-13 01:01] LABS: Glucose - Point of Care 143 mg/dl (70-99)
[2025-10-13 02:12] LABS: Glucose - Point of Care 133 mg/dl (70-99)
[2025-10-13] MEDS: DILAUDID 0.5 MG IV ×4 (02:15→23:22)
[2025-10-13 03:13] LABS: Glucose - Point of Care 131 mg/dl (70-99)
[2025-10-13] MEDS: ANCEF 5 IV ×2 (03:28→11:48)
[2025-10-13] MEDS: NOVOLIN R INSULIN INFUSION 100 IV (03:29)
[2025-10-13] MEDS: ZOFRAN 4 MG IV (03:36)
[2025-10-13] MEDS: DILAUDID 0.25 MG IV ×3 (03:37→12:05)
--- NOTE | 2025-10-13 03:43 | PTCARENOTE ---
No acute changes in assessment. Pt SR on the tele monitor. HR 70-80s. BP stable. 100/50-60s. CVP ~4-8. Pt on 4 L NC. POX 95%. CTx3 assessment unchanged, output as documented. Hernandez catheter intact and draining yellow urine. CVP/a-line
leveled/zeroed/flushed. Pt repositioned as documented. See MAR for pain medication administration. Glycemic protocol followed. EKG complete. Labs drawn and sent. Call luna within reach.
[2025-10-13 03:51] LABS: Hematocrit 28.7 % (39.0-52.0); Hemoglobin 9.9 g/dL (13.0-18.0); Mean Corp Hgb Conc. 34.5 g/dL (33.0-37.0); Mean Corpuscular Volume 84.4 fL (80.0-94.0); Platelet Count 223 10^3/uL (130-400); Red Cell Dist. Width 12.3 % (11.5-14.5)
[2025-10-13 04:17] LABS: Blood Urea Nitrogen 20 mg/dl (9-20); Calcium 9.0 mg/dl (8.4-10.2); Carbon Dioxide 26 mmol/L (22-30); Chloride 107 mmol/L (98-107); Estimated Creatinine Clearance > 125 ml/min; Glucose 124 mg/dl (70-99); Magnesium 2.2 mg/dl (1.6-2.3); Potassium 4.2 mmol/L (3.5-5.1); Sodium 138 mmol/L (135-145); eGFR > 60.00
[2025-10-13] MEDS: TORADOL 15 MG IV (04:50)
[2025-10-13 05:04] LABS: Glucose - Point of Care 140 mg/dl (70-99)
[2025-10-13] MEDS: TYLENOL 975 MG PO ×3 (05:35→21:04)
[2025-10-13 07:14] LABS: Glucose - Point of Care 131 mg/dl (70-99)
--- NOTE | 2025-10-13 07:44 | PN.DE.MGMTRT ---
Insulin Management
- -
10/13/2025: Diabetes Management Consult
65-year-old male was electively admitted on 10/12/2025 for CABG due to exertional angina and found to have triple-vessel coronary disease on left heart catheterization. Now POD #1 s/p Standard Sternotomy/Coronary artery bypass grafting x 4 (In situ
VARGHESE to LAD, Ao to RSVG to R PLB, Ao to RSVG to OM1, Ao to RSVG to diagonal)/Endoscopic vein harvesting of bilateral lower extremities/Left atrial appendage ligation using AtriClip device (35mm), by Dr. Nunez, 10/12/25,
Pt awake alet oriented, sitting up in chair, offers no complaints, able to discuss diabetes care plan.
A1C 6.4%, Cr 0.6, eGFR >60. Was not taking any diabetes medications prior to admission.
Currently on glycemic protocol, glucose range 131 to 143, receiving 4-6 units of insulin/hr
will continue current regimen. Assess in AM readiness to transition off drip
Consider SGLT2 and low dose Metformin daily upon transition off insulin infusion. Discussed with Pt and he was agreeable. CM to verify co-pay
Discussed with [facility] team and Nurse. Will cont to follow
Diabetes History
- -
Type of Diabetes: 2 requiring insulin
Pre-Admission Diabetes Regimen
10/12/25 10/13/25
14:31 03:34
Creatinine 0.7 0.7
Lab Results
Hemoglobin A1c 6.4 % (4.0-5.9) H 10/08/25 08:55
Insulin Pump Settings
IP Diabetes Regimen
10/12/25 10/12/25 10/12/25
14:31 14:38 15:53
Glucose 153 H
POC Glucose 174 H 169 H
10/12/25 10/12/25 10/12/25
17:07 18:04 19:06
Glucose
POC Glucose 144 H 127 H 139 H
1210/12/25 10/13/25
21:03 23:02 00:13
Glucose
POC Glucose 150 H 151 H 145 H
10/13/25 10/13/25 10/13/25
01:00 02:11 03:11
Glucose
POC Glucose 143 H 133 H 131 H
10/13/25 10/13/25 10/13/25
03:34 05:03 07:12
Glucose 124 H
POC Glucose 140 H 131 H
Meal type: Breakfast
Meal type: Dinner
Patient Education
--- NOTE | 2025-10-13 07:52 | W.PN.ANS.POP ---
Anesthesia Post Operative
- Anesthesia Post Op Note
Vital Signs Stable-See Nursing Note: Yes
Airway Patent: Yes
Adequate Pain Control: Yes
Change in Mental Status: No
Current Postoperative Nausea & Vomiting: No
Anesthesia Complications: No
General Anesthetic Recall: No
Unplanned Admission: No
Post Op Hydration Adequate: Yes
[2025-10-13] MEDS: NOVOLOG FLEXPEN SC ×3 (07:55→16:53)
--- NOTE | 2025-10-13 08:00 | PTCARENOTE ---
AAOx4 Pt pleasant sitting in chair plans on removing lozada and pelura chest tubes.
[2025-10-13] MEDS: PROTONIX 40 MG PO (08:32)
[2025-10-13] MEDS: NEURONTIN 100 MG PO ×3 (08:32→21:04)
[2025-10-13] MEDS: CRESTOR 40 MG PO (08:32)
[2025-10-13] MEDS: PACERONE 200 MG PO ×3 (08:33→21:04)
[2025-10-13] MEDS: PLAVIX 75 MG PO (08:33)
[2025-10-13] MEDS: LOW STRENGTH ASPIRIN 81 MG PO (08:33)
[2025-10-13] MEDS: SENOKOT 8.6 MG PO ×2 (08:33→19:30)
[2025-10-13] MEDS: COLCHICINE 0.3 MG PO (08:34)
[2025-10-13] MEDS: LIDOCAINE 4% PATCH 1 PATCH TOPICAL (08:35)
[2025-10-13] MEDS: TOPROL XL PO (08:35)
[2025-10-13] MEDS: BACTROBAN 2% OINTMENT 1 APPLIC NASAL ×2 (08:37→19:30)
[2025-10-13 08:46] LABS: Glucose - Point of Care 120 mg/dl (70-99)
[2025-10-13] MEDS: MAGNESIUM OXIDE 400 MG PO ×2 (08:56→19:30)
[2025-10-13] MEDS: LASIX 40 MG IV (08:56)
[2025-10-13] MEDS: ROXICODONE 5 MG PO ×3 (09:35→20:23)
--- NOTE | 2025-10-13 11:06 | W.PN.CARDCBS ---
Today's Communication / Plan
-
Continue postop care, colchicine for pericarditis
Impression / Plan
-
Primary Stock Or Delivery Clerk: Dr. Ortiz
Assessment:
Multivessel CAD status post CABG x 4 In situ VARGHESE to LAD, Ao to RSVG to R PLB, Ao to RSVG to OM1, Ao to RSVG to diagonal, LIDA clip 10/12/2025
Hyperlipidemia
Hypertension
Prediabetes/impaired fasting glucose
GERD/Lopez's esophagus
Tobacco use
ECHO 09/27/25: EF 64%, mild with peak/mean gradients 24/13 mmHg, MILAGRO 1.5 cm�, trace AR, no regional wall motion is noted
Plan:
Multivessel coronary artery disease
-status post CABG x 4 In situ VARGHESE to LAD, Ao to RSVG to R PLB, Ao to RSVG to OM1, Ao to RSVG to diagonal, LIDA clip 10/12/2025
Extubated 10/12/25
Weaned off Levophed 10/12/25
Pericarditis: Received 1 dose of Toradol, started on Colchicine
Maintain ASA, Plavix, Toprol XL, Crestor, Protonix
(preop was on norvasc 2.5mg daily and toprol 25mg daily)
Maintaining Sins Rhythm: On Amiodarone
Progress Note - Stock Or Delivery Clerk
Subjective
Date of Service: October 13, 2025
He tells me he has some discomfort in his chest along the sternal wound and also some additional discomfort when he takes a deep breath.
Objective
Labs:
10/13/25 03:34
10/13/25 03:34
Labs
Hgb 9.9 g/dL (13.0-18.0) L 10/13/25 03:34
Hct 28.7 % (39.0-52.0) L 10/13/25 03:34
Plt Count 223 10^3/uL (130-400) 10/13/25 03:34
PT 18.8 Sec (11.4-14.6) H 10/12/25 14:31
INR 1.56 10/12/25 14:31
APTT 29.5 Sec (23.4-35.0) 10/12/25 14:31
Sodium 138 mmol/L (135-145) 10/13/25 03:34
Potassium 4.2 mmol/L (3.5-5.1) 10/13/25 03:34
BUN 20 mg/dl (9-20) 10/13/25 03:34
Creatinine 0.7 mg/dL (0.7-1.3) 10/13/25 03:34
Glucose 124 mg/dl (70-99) H 10/13/25 03:34
Vital Signs and I&O:
Vital Signs
Temp Pulse Resp BP Pulse Ox
98.7 F 97 17 112/77 90
10/13/25 08:00 10/13/25 10:35 10/13/25 07:00 10/13/25 10:27 10/13/25 10:30
Vital Signs
Temp Pulse Resp BP Pulse Ox
98.7 F 97 17 112/77 90
10/13/25 08:00 10/13/25 10:35 10/13/25 07:00 10/13/25 10:27 10/13/25 10:30
Intake & Output
10/11/25 10/12/25 10/13/25 10/14/25
06:59 06:59 06:59 06:59
Intake Total 1319.8 / 1335.8 57 / 57
Output Total 1780 / 1830 130 / 130
Balance -460.2 / -494.2 -73 / -73
Physical Exam
Physical Exam
GEN: No distress, Awake alert and oriented x 3
HEENT: supple, mmm
LUNGS: CTA B/L, no wheezes/rales
CV: Reg, S1/S2, no murmur, + rub
ABD: soft, NT/ND
EXT: No cyanosis, clubbing, edema
NEURO: sedated
SKIN: Warm, pink, dry. No rash. Sternotomy incision c/d/i.
--- NOTE | 2025-10-13 11:14 | CM ---
Reviewed chart. Asked to check co-pay on Farxiga and Jardiance. Telephone call to his insurance ([phone]) to check on co-pays, Farxiga 10 mg po daily co-pay will be $4.56 a month but needs prior auth. thru Cover my Meds. Jardiance 10 mg po
co-pay would be $4.71 a month but it also need a prior auth. thru Cover my Meds. Updated Diabetic BOBBIN DUMPER. Met with Mr. Rea to review discharge plans. He states he is feeling okay. He states he ambulated today. He states prior to admission he
resides with his sister in a one story home without any steps to enter. He states prior to admission he was independent with ambulation and adls. He states he does not have any DME in the home. He states he has a prescription plan and uses [facility]. He states his sister will be home to assist in his care if needed. We reviewed a home visit by the Transitional Care Nurse . He is agreeable to a home visit. Medical work-up in progress. The discharge plan is to return home home with
his sister and a home visit by the Transitional care Nurse when stable.
[2025-10-13 12:16] LABS: Glucose - Point of Care 121 mg/dl (70-99)
[2025-10-13 12:35] LABS: Glucose - Point of Care 114 mg/dl (70-99)
[2025-10-13 12:43] LABS: Glucose - Point of Care 105 mg/dl (70-99)
--- NOTE | 2025-10-13 12:43 | PTCARENOTE ---
PT AAOx4 VS WNL pelura chest tubes and lozada removed. Pt walked the halls with cardiac rehab did great with them
--- NOTE | 2025-10-13 12:46 | W.PN.INTV ---
Today's Communication / Plan
Recommendations
Continue postoperative care
Follow chest tube output
Daily chest x-ray
Follow hemoglobin
Sign off
Assessment
-
Status post coronary artery bypass 10/12/2025
Postoperative mechanical ventilation
Conditions present prior admission:
Hypertension
Former light smoker
GERD
Assessment and plan:
Postoperative day 1
Extubated, on low-rate supplemental oxygen
Encourage incentive spirometry
Increase mobility as able
Analgesia with narcotics as needed-respiratory status closely.
Anemia noted-no evidence of acute bleeding
Follow H&H serially
Hemodynamics -vasopressors to be discontinued.
Adequate urinary output-follow
Kidney function is normal
Chest tube with no excessive drainage-no air leak.
Chest x-ray reviewed 10/13/2024: With no pneumothorax or fluid collections.
Advance diet as tolerated
Head of the bed elevation
Glycemic control per protocol
DVT prophylaxis when safe from the surgical perspective.
No additional critical care needs.
Sign off
Data reviewed:
Cardiac catheterization 10/01/2025:
1. Significant multivessel coronary artery disease.
2. LVEDP of 22 mmHg.
Stress test 09/30/2025:
Positive stress ECG for ischemia. [address] depression in inferolateral leads
Moderate to large severe partially reversible inferior and inferolateral defect consistent with ischemia or infarction with residual ischemia
Echocardiogram 09/27/2025: Mild AAS.
LVEF is normal.
No significant valvular abnormalities.
Subjective Dataa
Subjective Data
Date of Service:
Date of Service: October 13, 2025
Chief Complaint: Document Improvement Specialist Follow Up (Status post coronary artery bypass)
Subjective:
Extubated yesterday
Currently on lower supplemental oxygen
Denies shortness of breath at rest
Pain is controlled
Denies excessive coughing or phlegm production.
Review of Systems
General: Fever (n)
Cardiopulmonary: Dyspnea (none at rest)
GI: Abdominal Pain (n) and Nausea (n)
Neuro: Headache (n)
Objective Data
Data Reviewed
Vital Signs / I&O / Oxygen:
Vital Signs
Temp Pulse Resp BP Pulse Ox
98.7 F 86 17 123/74 97
10/13/25 08:00 10/13/25 11:50 10/13/25 07:00 10/13/25 11:41 10/13/25 11:50
Intake and Output
10/12/25 10/13/25 10/14/25
06:59 06:59 06:59
Intake Total 1319.8 / 1335.8 70 / 70
Output Total 1780 / 1830 140 / 140
Balance -460.2 / -494.2 -70 / -70
SaO2 [CPAP] 96
SaO2 [SIMV] 96
SaO2 97
Nasal Cannula flow liters per 4
minute
Physical Exam
General: Comfortable
HEENT: Normocephalic
Cardiovascular: S1-S2
Respiratory: Non-Labored Respirations and Chest Tube (No excessive drainage or pneumothorax)
GI: Soft and Non Distended
Neurology: Awake, Alert and No Motor Deficits
Skin: Warm
Labs/Micro/Reports
Lab Data
10/13/25 03:34
10/13/25 03:34
Laboratory Results
10/12/25
14:31
PT 18.8 H
INR 1.56
APTT 29.5
pH 7.36
pCO2 45
pO2 87
HCO3 25.4
O2 Delivery Level
[2025-10-13] MEDS: NSS IV ×2 (13:06→13:18)
[2025-10-13] MEDS: FERRLECIT 110 MG IV (13:21)
[2025-10-13 13:32] LABS: Glucose - Point of Care 121 mg/dl (70-99)
[2025-10-13 14:00] LABS: Glucose - Point of Care 115 mg/dl (70-99)
[2025-10-13 16:16] LABS: Glucose - Point of Care 137 mg/dl (70-99)
--- NOTE | 2025-10-13 17:25 | PTCARENOTE ---
PT VS WNL, pt sitting in chair comfortable, no new assessment findings at this time
[2025-10-13 18:21] LABS: Glucose - Point of Care 112 mg/dl (70-99)
[2025-10-13] MEDS: TOPROL XL 12.5 MG PO (19:30)
--- NOTE | 2025-10-13 20:00 | PTCARENOTE ---
Received pt from previous shift. Systems reviewed, see flowsheets. Pt sitting up in chair. Reported 7/10 sternal pain, PRN IV dilaudid administered, see MAR. SaO2 92% on 2L NC. Lungs clear to auscultation. NSR on heart monitor. CC glycemic protocol
followed. R IJ cordis with KVO infusing at 10mL/hr. R #18 PIV with insulin gtt infusing. Mediastinal chest tubes x2 to -20cm suction. No crepitus or air leak noted. L hand with +1 edema. B/l +2 radial pulses. Weak DPs. FANNIE wraps and SCDs in place.
CHG bath completed. Will continue to monitor.
[2025-10-13 20:14] LABS: Glucose - Point of Care 122 mg/dl (70-99)
[2025-10-13 21:05] LABS: Glucose - Point of Care 115 mg/dl (70-99)
[2025-10-13 22:03] LABS: Glucose - Point of Care 101 mg/dl (70-99)
[2025-10-13 23:02] LABS: Glucose - Point of Care 106 mg/dl (70-99)
[2025-10-14] VITALS (31 sets, daily range): BP systolic 88–139; BP diastolic 62–98; BMI 31.5
--- NOTE | 2025-10-14 | PTCARENOTE ---
Systems reviewed. No changes at this time. Assisted pt back to bed. Pt peed 350mL tea colored urine. Insulin gtt per protocol.
[2025-10-14 00:04] LABS: Glucose - Point of Care 88 mg/dl (70-99)
[2025-10-14] MEDS: NOVOLIN R INSULIN INFUSION 100 IV (00:20)
[2025-10-14 02:06] LABS: Glucose - Point of Care 121 mg/dl (70-99)
[2025-10-14] MEDS: ROXICODONE 5 MG PO ×4 (02:29→18:20)
[2025-10-14] MEDS: DILAUDID 0.5 MG IV (02:39)
--- NOTE | 2025-10-14 03:15 | PTCARENOTE ---
Pt woke up in a lot of pain and asked to go back to the chair. Transferred to chair, PRN oxy administered. Pain 05/30, pt desatted to 88-90% and required RT to place him on MFNC. PRN dilaudid administered. Advised pt to take slow breaths in through
his nose. SaO2 94% on 10L MFNC. Lungs clear, but shallow and diminished. Will continue to monitor.
[2025-10-14 04:03] LABS: Glucose - Point of Care 112 mg/dl (70-99)
[2025-10-14 04:43] LABS: Hematocrit 26.1 % (39.0-52.0); Hemoglobin 9.1 g/dL (13.0-18.0); Mean Corp Hgb Conc. 34.9 g/dL (33.0-37.0); Mean Corpuscular Volume 84.5 fL (80.0-94.0); Platelet Count 221 10^3/uL (130-400); Red Cell Dist. Width 12.4 % (11.5-14.5)
[2025-10-14 05:06] LABS: Blood Urea Nitrogen 29 mg/dl (9-20); Calcium 9.2 mg/dl (8.4-10.2); Carbon Dioxide 29 mmol/L (22-30); Chloride 100 mmol/L (98-107); Estimated Creatinine Clearance 111 ml/min; Glucose 90 mg/dl (70-99); Magnesium 2.2 mg/dl (1.6-2.3); Potassium 3.7 mmol/L (3.5-5.1); Sodium 134 mmol/L (135-145); eGFR > 60.00
[2025-10-14] MEDS: TYLENOL 975 MG PO ×3 (05:56→21:08)
[2025-10-14 06:00] LABS: Glucose - Point of Care 80 mg/dl (70-99)
--- NOTE | 2025-10-14 07:16 | W.PN.CT ---
Today's Communication / Plan
-
-pod #2
-some hypoxia overnight, likely d/t pain/splinting and some hypervolemia. pOx 95% pm 8 L midflow
-wt is up from 213 preop to 219 lbs today
-drips: insulin
-consider diuresis
-ordered 40 po KCL this am for K 3.7
-CT outputs: 2 meds 120/206 in 12/24 hrs
-encourage IS, OOB, ambulate
-needs encouragement with IS ([id number] so far)
Assessment / Plan
-
Assessment:
-S/P Standard Sternotomy/Coronary artery bypass grafting x 4 (In situ VARGHESE to LAD, Ao to RSVG to R PLB, Ao to RSVG to OM1, Ao to RSVG to diagonal)/Endoscopic vein harvesting of bilateral lower extremities/Left atrial appendage ligation using
AtriClip device (35mm), by Dr. Nunez, 10/12/25, pod#2
-Severe 3v CAD
-Hypertension
-Hyperlipidemia
-LVEF 64%
-GERD/Lopez's esophagus
-Class 1 obesity (BMI 30.6)
-Prediabetes (A1C 6.4)
-Former tobacco use
-S/P ACL repair, 1984
-S/P Lap Kelly, 06/21/21
-Acute postop blood loss/Anemia (stable without transfusion)
-Acute postop atelectasis/ pulmonary insufficiency
-Acute postop hypovolemia with subsequent hypervolemia
-Acute postop pericarditis
Discussed patient care with: Nursing and Care Team
Subjective
Procedure
S/P Standard Sternotomy/Coronary artery bypass grafting x 4 (In situ VARGHESE to LAD, Ao to RSVG to R PLB, Ao to RSVG to OM1, Ao to RSVG to diagonal)/Endoscopic vein harvesting of bilateral lower extremities/Left atrial appendage ligation using AtriClip
device (35mm), by Dr. Nunez, 10/12/25
-
Date of Service: October 14, 2025
Objective Data
-
Lab Results
10/14/25 04:20
10/14/25 04:20
PT 18.8 Sec (11.4-14.6) H 10/12/25 14:31
INR 1.56 10/12/25 14:31
APTT 29.5 Sec (23.4-35.0) 10/12/25 14:31
Vital Signs
Vital Signs
Temp Pulse Resp BP Pulse Ox
98.5 F 74 20 116/72 97
10/14/25 03:00 10/14/25 06:30 10/14/25 03:00 10/14/25 06:00 10/14/25 06:58
CT Intake/Output/Weight
10/13/25 10/14/25 10/14/25
18:59 06:59 18:59
Intake Total 166.5 / 785.4 618.9 / 785.4
Output Total 841 / 1311 470 / 1311
Balance -674.5 / -525.6 148.9 / -525.6
SaO2: 97
Physical Exam
-
General: Awake and AOx3
Cardiovascular: Regular rate & rhythm, No Murmurs and No Rub
Respiratory: Rales (at bases b/l)
Sternum: Stable
Incision: Dry and Intact
Extremities: Edema +1
Abdomen: soft, nontender, nondistended, + bowel sounds
Data Reviewed
-
Lab Results: Results Reviewed
Medications: Active Meds Reviewed
Chest X-Ray: Report Reviewed and Image Reviewed
ECG: Report Reviewed and Image Reviewed
[2025-10-14] MEDS: LIDOCAINE 4% PATCH TOPICAL ×2 (08:00→08:09)
--- NOTE | 2025-10-14 08:00 | PTCARENOTE ---
Assumed care of pt from night RN. AAOx3. NSR on tele, HRs 80s. SpO2 95% on 4L NC. Continuing CC glycemic protocol. Insulin gtt infusing through R wrist PIV. R IJ cordis with KVO infusing. Mediastinal chest tubes x2 to -20cm suction. No crepitus or
air leak noted. Temp pacer off with wires connected. FANNIE wraps and SCDs remain on B/L lower extremities. PRN oxy given for incisional pain (see MAR). Assessment documented. Pt remains OOB in chair at this time. Call luna in reach.
[2025-10-14 08:04] LABS: Glucose - Point of Care 112 mg/dl (70-99)
[2025-10-14] MEDS: PROTONIX 40 MG PO (08:06)
[2025-10-14] MEDS: KCL 40 MEQ PO (08:06)
[2025-10-14] MEDS: CRESTOR 40 MG PO (08:06)
[2025-10-14] MEDS: COLCHICINE 0.3 MG PO (08:07)
[2025-10-14] MEDS: LOW STRENGTH ASPIRIN 81 MG PO (08:07)
[2025-10-14] MEDS: NEURONTIN 100 MG PO ×3 (08:07→21:08)
[2025-10-14] MEDS: PLAVIX 75 MG PO (08:07)
[2025-10-14] MEDS: SENOKOT 8.6 MG PO ×2 (08:07→21:08)
[2025-10-14] MEDS: BACTROBAN 2% OINTMENT 1 APPLIC NASAL ×2 (08:07→21:09)
[2025-10-14] MEDS: MAGNESIUM OXIDE 400 MG PO ×2 (08:07→21:08)
[2025-10-14] MEDS: PACERONE 200 MG PO ×3 (08:09→21:06)
[2025-10-14] MEDS: TOPROL XL PO (08:10)
--- NOTE | 2025-10-14 08:27 | W.PN.CARDCBS ---
Today's Communication / Plan
-
Pain control for pericarditis, encourage incentive spirometry
Consider IV Lasix
Impression / Plan
-
Primary Salesperson Driver: Dr. Ortiz
Assessment:
Multivessel CAD status post CABG x 4 In situ VARGHESE to LAD, Ao to RSVG to R PLB, Ao to RSVG to OM1, Ao to RSVG to diagonal, LIDA clip 10/12/2025
Hyperlipidemia
Hypertension
Prediabetes/impaired fasting glucose
GERD/Lopez's esophagus
Tobacco use
ECHO 09/27/25: EF 64%, mild with peak/mean gradients 24/13 mmHg, MILAGRO 1.5 cm�, trace AR, no regional wall motion is noted
Plan:
Multivessel coronary artery disease
-status post CABG x 4 In situ VARGHESE to LAD, Ao to RSVG to R PLB, Ao to RSVG to OM1, Ao to RSVG to diagonal, LIDA clip 10/12/2025
Extubated 10/12/25
Weaned off Levophed 10/12/25
Pericarditis: Received 1 dose of Toradol, started on Colchicine
Maintain ASA, Plavix, Toprol XL, Crestor, Protonix
(preop was on norvasc 2.5mg daily and toprol 25mg daily)
Maintaining Sins Rhythm: On Amiodarone
- Noted to have some hypoxia overnight and still requiring supplemental oxygen.
In some part this may be related to not taking deep breaths, splinting.
Encouraged use of incentive spirometry
Pain control for pericarditis
Additionally his weight is up 6 pounds from preop and there likely is a component of volume overload. Chest x-ray today some pulmonary vascular cephalization
Recommend Lasix 40 mg IV x 1 today and then reassess if okay with CT surgery (discussed with CT surgery PA)
Progress Note - Salesperson Driver
Subjective
Date of Service: October 14, 2025
He feels his chest discomfort with deep breaths has improved slightly compared to yesterday.
Objective
Labs:
10/14/25 04:20
10/14/25 04:20
Labs
Hgb 9.1 g/dL (13.0-18.0) L 10/14/25 04:20
Hct 26.1 % (39.0-52.0) L 10/14/25 04:20
Plt Count 221 10^3/uL (130-400) 10/14/25 04:20
PT 18.8 Sec (11.4-14.6) H 10/12/25 14:31
INR 1.56 10/12/25 14:31
APTT 29.5 Sec (23.4-35.0) 10/12/25 14:31
Sodium 134 mmol/L (135-145) L 10/14/25 04:20
Potassium 3.7 mmol/L (3.5-5.1) 10/14/25 04:20
BUN 29 mg/dl (9-20) H 10/14/25 04:20
Creatinine 0.8 mg/dL (0.7-1.3) 10/14/25 04:20
Glucose 90 mg/dl (70-99) 10/14/25 04:20
Vital Signs and I&O:
Vital Signs
Temp Pulse Resp BP Pulse Ox
98.6 F 84 20 97/68 97
10/14/25 08:00 10/14/25 08:09 10/14/25 03:00 10/14/25 08:10 10/14/25 08:00
Vital Signs
Temp Pulse Resp BP Pulse Ox
98.6 F 84 20 97/68 97
10/14/25 08:00 10/14/25 08:09 10/14/25 03:00 10/14/25 08:10 10/14/25 08:00
Intake & Output
10/12/25 10/13/25 10/14/25 10/15/25
06:59 06:59 06:59 06:59
Intake Total 1319.8 / 1335.8 785.4 / 785.4
Output Total 1780 / 1830 1311 / 1311
Balance -460.2 / -494.2 -525.6 / -525.6
Physical Exam
Physical Exam
GEN: No distress, Awake alert and oriented x 3
HEENT: supple, mmm
LUNGS: CTA B/L, no wheezes/rales
CV: Reg, S1/S2, no S3 or S4, no murmur, + rub
ABD: soft, NT/ND
EXT: No cyanosis, clubbing, edema
NEURO: sedated
SKIN: Warm, pink, dry. No rash. Sternotomy incision c/d/i.
[2025-10-14] MEDS: NOVOLOG FLEXPEN 4 UNITS SC (09:53)
[2025-10-14 10:04] LABS: Glucose - Point of Care 143 mg/dl (70-99)
[2025-10-14 12:14] LABS: Glucose - Point of Care 195 mg/dl (70-99)
[2025-10-14] MEDS: LASIX 40 MG IV (12:15)
[2025-10-14] MEDS: GLUCOPHAGE 500 MG PO (12:15)
[2025-10-14] MEDS: KCL 20 MEQ PO (12:15)
[2025-10-14] MEDS: FARXIGA 10 MG PO (12:15)
[2025-10-14] MEDS: NOVOLOG FLEXPEN-MODERATE RESISTANCE 1 UNITS SC (12:22)
[2025-10-14] MEDS: LANTUS 0.1 UNITS SC (12:29)
[2025-10-14] MEDS: NOVOLOG FLEXPEN SC (12:38)
--- NOTE | 2025-10-14 13:03 | PTCARENOTE ---
Temp pacer wires removed at bedside by PA. Pt completed bedrest. No new drainage noted from chest tubes. VSS. Lantus ordered and given (see MAR). Insulin gtt discontinued. Farxiga and Metformin started. IV lasix and PO Potassium ordered and given.
Pt assisted OOB back to chair. Family member at bedside. Call luna in reach.
[2025-10-14] MEDS: FERRLECIT 110 MG IV (13:10)
[2025-10-14] MEDS: LOPRESSOR 12.5 MG PO (15:42)
--- NOTE | 2025-10-14 15:48 | PTCARENOTE ---
Mediastinal chest tubes removed at bedside. New dressing applied. CDI. Metoprolol increased to 25mg BID. Assessment otherwise unchanged. Pt resting in bed, call luna in reach.
[2025-10-14] MEDS: ZOFRAN 4 MG IV (16:38)
[2025-10-14 16:43] LABS: Glucose - Point of Care 139 mg/dl (70-99)
[2025-10-14] MEDS: NOVOLOG FLEXPEN-MODERATE RESISTANCE SC (16:43)
--- NOTE | 2025-10-14 20:00 | PTCARENOTE ---
assumed care of patient @ 1900. received pt laying in bed -
neuro - aox3. mild c/o pain.
CV- NSR 70s, + pulses, +2 LE edema
Lungs- clear on 2L satting high 90s. no cough or sputum.
GI- +BS, tolerating diet, no bm yet
-voiding clear yellow urine in urinal
skin- sternal inscision CDI, SOREN. CT dressing CDI. SVG sites CDI SOREN, r groin puncture cdi soren
Lines- R IJ cordis with kvo, PIV both patent.
pt resting comfortably with call luna within reach .
[2025-10-14] MEDS: LOPRESSOR 25 MG PO (21:07)
[2025-10-14 21:29] LABS: Glucose - Point of Care 182 mg/dl (70-99)
[2025-10-15] VITALS (16 sets, daily range): BP systolic 81–156; BP diastolic 57–137; PULSE 80; O2SAT 97; BMI 30.9
--- NOTE | 2025-10-15 02:29 | W.PN.CT ---
Today's Communication / Plan
-
-pod #3
-no issues overnight
-responded well to 40 iv Lasix. UO 1250/3650 in 12/24 hrs
-pw and CTs were dcd 10/14
-O2 requirements decreased - pOx 98% on 2 L-wean as tolerated
-ambulate
-encourage IS, OOB
-possible d/c soon
Assessment / Plan
-
Assessment:
-S/P Standard Sternotomy/Coronary artery bypass grafting x 4 (In situ VARGHESE to LAD, Ao to RSVG to R PLB, Ao to RSVG to OM1, Ao to RSVG to diagonal)/Endoscopic vein harvesting of bilateral lower extremities/Left atrial appendage ligation using
AtriClip device (35mm), by Dr. Nunez, 10/12/25, pod#3
-Severe 3v CAD
-Hypertension
-Hyperlipidemia
-LVEF 64%
-GERD/Lopez's esophagus
-Class 1 obesity (BMI 30.6)
-Prediabetes (A1C 6.4)
-Former tobacco use
-S/P ACL repair, 1984
-S/P Lap Kelly, 06/21/21
-Acute postop blood loss/Anemia (stable without transfusion)
-Acute postop atelectasis/ pulmonary insufficiency
-Acute postop hypovolemia with subsequent hypervolemia
-Acute postop pericarditis
Discussed patient care with: Nursing and Care Team
Subjective
Procedure
S/P Standard Sternotomy/Coronary artery bypass grafting x 4 (In situ VARGHESE to LAD, Ao to RSVG to R PLB, Ao to RSVG to OM1, Ao to RSVG to diagonal)/Endoscopic vein harvesting of bilateral lower extremities/Left atrial appendage ligation using AtriClip
device (35mm), by Dr. Nunez, 10/12/25
-
Date of Service: October 15, 2025
Objective Data
-
PT 18.8 Sec (11.4-14.6) H 10/12/25 14:31
INR 1.56 10/12/25 14:31
APTT 29.5 Sec (23.4-35.0) 10/12/25 14:31
Vital Signs
Vital Signs
Temp Pulse Resp BP Pulse Ox
98.7 F 72 16 116/75 98
10/14/25 20:00 10/14/25 22:30 10/14/25 20:00 10/14/25 21:11 10/14/25 22:30
CT Intake/Output/Weight
10/14/25 10/14/25 10/15/25
06:59 18:59 06:59
Intake Total 618.9 / 785.4 470 / 470
Output Total 470 / 1311 2475 / 2875 400 / 2875
Balance 148.9 / -525.6 -2004 / 2405 -400 / -2405
SaO2: 98
Physical Exam
-
General: Awake and AOx3
Cardiovascular: Regular rate & rhythm, No Murmurs and No Rub
Respiratory: Rales (at bases b/l)
Sternum: Stable
Incision: Dry and Intact
Abdomen: soft, nontender, nondistended, + bowel sounds
Extremities: Edema +1
Data Reviewed
-
Lab Results: Results Reviewed
Medications: Active Meds Reviewed
Chest X-Ray: Report Reviewed and Image Reviewed
ECG: Report Reviewed and Image Reviewed
[2025-10-15] MEDS: ROXICODONE 5 MG PO (04:33)
[2025-10-15 04:48] LABS: Hematocrit 23.6 % (39.0-52.0); Hemoglobin 8.2 g/dL (13.0-18.0); Mean Corp Hgb Conc. 34.7 g/dL (33.0-37.0); Mean Corpuscular Volume 85.2 fL (80.0-94.0); Platelet Count 171 10^3/uL (130-400); Red Cell Dist. Width 12.2 % (11.5-14.5)
[2025-10-15 05:10] LABS: Blood Urea Nitrogen 25 mg/dl (9-20); Calcium 8.8 mg/dl (8.4-10.2); Carbon Dioxide 31 mmol/L (22-30); Chloride 101 mmol/L (98-107); Estimated Creatinine Clearance 99 ml/min; Glucose 127 mg/dl (70-99); Magnesium 2.0 mg/dl (1.6-2.3); Potassium 3.9 mmol/L (3.5-5.1); Sodium 133 mmol/L (135-145); eGFR > 60.00
[2025-10-15] MEDS: TYLENOL 975 MG PO ×3 (06:00→22:01)
[2025-10-15] MEDS: LASIX 40 MG IV (07:52)
[2025-10-15] MEDS: LOPRESSOR 25 MG PO ×2 (07:52→19:29)
[2025-10-15] MEDS: PACERONE 200 MG PO ×3 (07:52→22:01)
[2025-10-15 07:53] LABS: Glucose - Point of Care 144 mg/dl (70-99)
[2025-10-15] MEDS: GLUCOPHAGE 500 MG PO (07:53)
[2025-10-15] MEDS: CRESTOR 40 MG PO (07:53)
[2025-10-15] MEDS: PLAVIX 75 MG PO (07:53)
[2025-10-15] MEDS: SENOKOT 8.6 MG PO ×2 (07:53→19:29)
[2025-10-15] MEDS: NEURONTIN 100 MG PO ×3 (07:53→22:01)
[2025-10-15] MEDS: MAGNESIUM OXIDE 400 MG PO ×2 (07:53→19:29)
[2025-10-15] MEDS: PROTONIX 40 MG PO (07:53)
[2025-10-15] MEDS: LOW STRENGTH ASPIRIN 81 MG PO (07:53)
[2025-10-15] MEDS: FARXIGA 10 MG PO (07:53)
[2025-10-15] MEDS: DIAMOX 250 MG PO (07:54)
[2025-10-15] MEDS: NOVOLOG FLEXPEN-MODERATE RESISTANCE SC ×3 (07:54→18:27)
[2025-10-15] MEDS: COLCHICINE 0.3 MG PO (07:54)
[2025-10-15] MEDS: LIDOCAINE 4% PATCH TOPICAL (07:55)
[2025-10-15] MEDS: BACTROBAN 2% OINTMENT 1 APPLIC NASAL ×2 (07:55→19:29)
[2025-10-15] MEDS: KCL 40 MEQ PO (08:03)
--- NOTE | 2025-10-15 08:24 | PTCARENOTE ---
Assumed care of patient from desizing pad operator RN. AAO x 3 Sitting up in the chair. Denies complaint at present. SR on monitor. 2 L NC Lungs clear but decreased. Abdomen soft and non tender. Voiding without issue. Plus 1 lower extremity edema
appreciated. Pulses weakly palpable. Plan for day discussed.
--- NOTE | 2025-10-15 10:36 | CM ---
Reviewed chart. Met [facility] Mr. Rea to review discharge plans. He states he is feeling well and maybe able to go home soon. We reviewed a home visit by the Transitional Care Nurse. He is agreeable to a home visit. He ambulates in the hallway today
without any problem. Prior to admission he resides with his sister in a one story home without any steps to enter. Prior to admission he was independent with ambulation and adls. He does not have any DME in the home. He has a prescription plan and
uses [facility]. His sister will be home to assist in his care if needed. Medical work-up in progress. The discharge plan is to return home home with his sister and a home visit by the Transitional care Nurse when stable.
--- NOTE | 2025-10-15 11:03 | W.PN.CARDCBS ---
Addendum entered and electronically signed by Jose Herrera MD 10/15/25 12:06:
Patient seen, interviewed and examined by me.
He reports that he still has some chest discomfort when he takes a deep breath but overall improved.
Well-appearing, no acute distress
Regular rate and rhythm with normal S1 and S2, no S3 no S4. There is a grade 1/6 apical holosystolic murmur and no rubs. PMI is normally placed.
Lungs are clear to auscultation bilaterally without wheezes rales or rhonchi.
Abdomen soft nontender nondistended with normoactive bowel sounds
Extremities show trace pretibial edema bilaterally no clubbing or cyanosis.
Neurologic exam is grossly nonfocal.
Continue treatment for postoperative pericarditis, symptoms improving. We have continue to encourage use of incentive spirometry.
Remains in sinus rhythm.
Diuresis as needed.
Anticipating potential discharge tomorrow.
His was present in the room. Both of their questions have been answered.
Original Note:
Today's Communication / Plan
-
continue post op care
in SR
diurese
Impression / Plan
-
Primary Roll Icer: Dr. Ortiz
Assessment:
Multivessel CAD status post CABG x 4 In situ VARGHESE to LAD, Ao to RSVG to R PLB, Ao to RSVG to OM1, Ao to RSVG to diagonal, LIDA clip 10/12/2025
Hyperlipidemia
Hypertension
Prediabetes/impaired fasting glucose
GERD/Lopez's esophagus
Tobacco use
ECHO 09/27/25: EF 64%, mild with peak/mean gradients 24/13 mmHg, MILAGRO 1.5 cm�, trace AR, no regional wall motion is noted
Plan:
-status post CABG x 4 In situ VARGHESE to LAD, Ao to RSVG to R PLB, Ao to RSVG to OM1, Ao to RSVG to diagonal, LIDA clip 10/12/2025
-Doing well
-Started on colchicine for postop pericarditis
-Continue aspirin, Plavix. Hemoglobin 8.2
-in SR. continue toprol/amiodarone (preop was on norvasc 2.5mg daily and toprol 25mg daily)
-continue crestor
-weaned off supp O2 this AM. continue diuresis
-ambulate/OOB/IS
-planning for DC in AM
-d/w nursing
Progress Note - Roll Icer
Subjective
Date of Service: October 15, 2025
doing ok. passing gas. reports good appetite
Objective
Labs:
10/15/25 04:29
10/15/25 04:29
Labs
Hgb 8.2 g/dL (13.0-18.0) L 10/15/25 04:29
Hct 23.6 % (39.0-52.0) L 10/15/25 04:29
Plt Count 171 10^3/uL (130-400) D 10/15/25 04:29
PT 18.8 Sec (11.4-14.6) H 10/12/25 14:31
INR 1.56 10/12/25 14:31
APTT 29.5 Sec (23.4-35.0) 10/12/25 14:31
Sodium 133 mmol/L (135-145) L 10/15/25 04:29
Potassium 3.9 mmol/L (3.5-5.1) 10/15/25 04:29
BUN 25 mg/dl (9-20) H 10/15/25 04:29
Creatinine 0.9 mg/dL (0.7-1.3) 10/15/25 04:29
Glucose 127 mg/dl (70-99) H 10/15/25 04:29
Vital Signs and I&O:
Vital Signs
Temp Pulse Resp BP Pulse Ox
98.2 F 87 18 101/84 97
10/15/25 08:00 10/15/25 08:00 10/15/25 08:00 10/15/25 07:55 10/15/25 08:30
Vital Signs
Temp Pulse Resp BP Pulse Ox
98.2 F 87 18 101/84 97
10/15/25 08:00 10/15/25 08:00 10/15/25 08:00 10/15/25 07:55 10/15/25 08:30
Intake & Output
10/13/25 10/14/25 10/15/25 10/16/25
07:59 07:59 07:59 07:59
Intake Total 1335.8 / 1350.8 769.4 / 784.4 470 / 840 370 / 370
Output Total 1830 / 1870 1261 / 1261 3725 / 4025 700 / 700
Balance -494.2 / -519.2 -491.6 / -476.6 -3255 / -3185 -330 / -330
Physical Exam
Physical Exam
GEN: No distress, awake, alert, oriented x3
HEENT: supple, anicteric, mmm, eomi
LUNGS: Diminished BS B/L, no wheezes
CV: Reg, S1/S2, no murmur
ABD: soft, BS+, NT/ND
EXT: No cyanosis, clubbing. 1+ edema of B/L LE
NEURO: Gross non-focal
SKIN: Warm, pink, dry. No rash. Sternotomy incision c/d/i.
[2025-10-15] MEDS: NSS IV (13:00)
[2025-10-15] MEDS: FERRLECIT 110 MG IV (15:26)
[2025-10-15] MEDS: LASIX 20 MG PO (17:40)
--- NOTE | 2025-10-15 18:19 | PTCARENOTE ---
pt is sr on the monitor, hr in the 80s, vss. pt c/o earlier of being nauseous, Zofran given. pt has been resting on and off throughout the day. pt ambulating in room and tolerating well. pt offers no complaints at this time. pt educated on plan of
care and pt verbalized understanding. call luna within reach.
[2025-10-15 18:31] LABS: Glucose - Point of Care 138 mg/dl (70-99)
[2025-10-15] MEDS: KCL 20 MEQ PO (22:01)
--- NOTE | 2025-10-15 22:46 | PTCARENOTE ---
Pt rec'd at change of shift in recliner chair with legs elevated. IS encouraged. Lungs diminished but clear on R/A. No BM since adm.
+ BS, no nausea. Inc soren with surgical glue present. no drainage noted. Right groin ecchymotic but soft
[2025-10-16 04:49] VITALS: BP 103/63
[2025-10-16 04:59] VITALS: BMI 29.9
--- NOTE | 2025-10-16 05:01 | W.PN.CT ---
Today's Communication / Plan
-
-pod #4
-doing well, no complaints, ambulates without problems
-mild hypotension, asymptomatic
-diuresed with bid Lasix 10/15. UO 1225/2725 in 12/24 hrs.
-Cr slightly trended up - 1.1 today (0.9 prior). Wt is 208 lbs today (213 preop). Held po Lasix this am
-weaned off O2
-follow 2v-CXR
-possible d/c home
Assessment / Plan
-
Assessment:
-S/P Standard Sternotomy/Coronary artery bypass grafting x 4 (In situ VARGHESE to LAD, Ao to RSVG to R PLB, Ao to RSVG to OM1, Ao to RSVG to diagonal)/Endoscopic vein harvesting of bilateral lower extremities/Left atrial appendage ligation using
AtriClip device (35mm), by Dr. Nunez, 10/12/25, pod#4
-Severe 3v CAD
-Hypertension
-Hyperlipidemia
-LVEF 64%
-GERD/Lopez's esophagus
-Class 1 obesity (BMI 30.6)
-Prediabetes (A1C 6.4)
-Former tobacco use
-S/P ACL repair, 1984
-S/P Lap Kelly, 06/21/21
-Acute postop blood loss/Anemia (stable without transfusion)
-Acute postop atelectasis/ pulmonary insufficiency
-Acute postop hypovolemia with subsequent hypervolemia
-Acute postop pericarditis
Discussed patient care with: Care Team
Subjective
Procedure
S/P Standard Sternotomy/Coronary artery bypass grafting x 4 (In situ VARGHESE to LAD, Ao to RSVG to R PLB, Ao to RSVG to OM1, Ao to RSVG to diagonal)/Endoscopic vein harvesting of bilateral lower extremities/Left atrial appendage ligation using AtriClip
device (35mm), by Dr. Nunez, 10/12/25
-
Date of Service: October 16, 2025
Objective Data
-
PT 18.8 Sec (11.4-14.6) H 10/12/25 14:31
INR 1.56 10/12/25 14:31
APTT 29.5 Sec (23.4-35.0) 10/12/25 14:31
Vital Signs
Vital Signs
Temp Pulse Resp BP Pulse Ox
98.8 F 80 18 97/62 96
10/15/25 22:00 10/15/25 22:00 10/15/25 22:00 10/15/25 22:00 10/15/25 22:00
CT Intake/Output/Weight
10/15/25 10/15/25 10/16/25
06:59 18:59 06:59
Intake Total 850 / 1090 240 / 1090
Output Total 1250 / 3725 1500 / 2225 725 / 2225
Balance -1250 / -3255 -650 / -1135 -485 / -1135
SaO2: 96
Physical Exam
-
General: Awake and AOx3
Cardiovascular: Regular rate & rhythm, No Murmurs and No Rub
Respiratory: Decreased Breath Sounds
Sternum: Stable
Incision: Clean, Dry and Intact
Extremities: No Edema
Data Reviewed
-
Medications: Active Meds Reviewed
Chest X-Ray: Report Reviewed and Image Reviewed
ECG: Report Reviewed and Image Reviewed
[2025-10-16 05:46] LABS: Hematocrit 24.8 % (39.0-52.0); Hemoglobin 8.6 g/dL (13.0-18.0); Mean Corp Hgb Conc. 34.7 g/dL (33.0-37.0); Mean Corpuscular Volume 84.4 fL (80.0-94.0); Platelet Count 218 10^3/uL (130-400); Red Cell Dist. Width 12.3 % (11.5-14.5)
[2025-10-16 06:09] LABS: Blood Urea Nitrogen 22 mg/dl (9-20); Calcium 9.0 mg/dl (8.4-10.2); Carbon Dioxide 27 mmol/L (22-30); Chloride 104 mmol/L (98-107); Estimated Creatinine Clearance 71 ml/min; Glucose 112 mg/dl (70-99); Magnesium 2.3 mg/dl (1.6-2.3); Potassium 3.7 mmol/L (3.5-5.1); Sodium 136 mmol/L (135-145); eGFR > 60.00
--- NOTE | 2025-10-16 06:17 | PTCARENOTE ---
Pt reports having slept well. Assisted oob to recliner chair. CHG wipes completed.
[2025-10-16] MEDS: TYLENOL 975 MG PO (06:35)
[2025-10-16 07:40] VITALS: BP 93/67
[2025-10-16 07:52] LABS: Glucose - Point of Care 180 mg/dl (70-99)
[2025-10-16] MEDS: PROTONIX 40 MG PO (08:06)
[2025-10-16] MEDS: LOW STRENGTH ASPIRIN 81 MG PO (08:06)
[2025-10-16] MEDS: MAGNESIUM OXIDE 400 MG PO (08:06)
[2025-10-16] MEDS: PLAVIX 75 MG PO (08:06)
[2025-10-16] MEDS: CRESTOR 40 MG PO (08:07)
[2025-10-16] MEDS: SENOKOT 8.6 MG PO (08:07)
[2025-10-16] MEDS: PACERONE 200 MG PO (08:07)
[2025-10-16] MEDS: GLUCOPHAGE 500 MG PO (08:07)
[2025-10-16] MEDS: FARXIGA 10 MG PO (08:07)
[2025-10-16] MEDS: COLCHICINE 0.3 MG PO (08:07)
[2025-10-16] MEDS: NEURONTIN 100 MG PO (08:08)
[2025-10-16 08:12] VITALS: BP 92/64
[2025-10-16] MEDS: NOVOLOG FLEXPEN-MODERATE RESISTANCE SC (09:14)
[2025-10-16] MEDS: LIDOCAINE 4% PATCH TOPICAL (09:15)
[2025-10-16] MEDS: BACTROBAN 2% OINTMENT NASAL (09:15)
[2025-10-16 11:21] VITALS: BP 91/56
[2025-10-16] MEDS: TOPROL XL 25 MG PO (12:05)
--- NOTE | 2025-10-16 12:12 | W.DCSUMMARY ---
Discharge Summary
Discharge Data
Date of Admission: 10/12/25
Date of Discharge: 10/16/25
-
Pending Results: No
Hospital Course
Primary care physician: Dontae Hoffman
Outpatient zinc chloride operator: Elizabeth
Inpatient consultants: GARETH
Procedures:
1. 10/12 CABG x4, VARGHESE-LAD, SVG-Dx, SVG-OM1, SVG-RPLB, ELAA #[address] Herlinda Nunez
Primary Diagnosis:
1. Exertional angina
2. Multivessel coronary artery disease
Secondary Diagnoses:
1. Hypertension
2. Hyperlipidemia
3. Lopez's esophagus
4. History of lap cholecystectomy
5. History of ACL repair
6. Statin intolerance
HPI: Patient is a 65-year-old male with complaints of intermittent chest discomfort mostly with exertion happening more frequently as a recent. Patient had a positive stress test and subsequent catheterization that demonstrated multivessel
coronary artery disease. He was referred to CT surgery for CABG evaluation. After all preoperative workup was completed he was deemed a suitable candidate to undergo the procedure.
Hospital course: Pt was brought in electively on 10/12/2025 where he underwent a CABG x 4 with VARGHESE to LAD, saphenous vein graft to diagonal, saphenous vein graft to OM1 and saphenous vein graft to RPLB with exclusion of left atrial appendage with
a #35 clip without any perioperative complications. Please see full operative report for details. Patient was transferred to CVICU per protocol on Levophed at 6 and insulin and Precedex drips. He was extubated that evening at approximately 17:18
and remained hemodynamically stable overnight. On postop day 1 pleural chest tube was discontinued without incident he was started on some gentle IV diuresis he remained in sinus rhythm. On postop day 2 temporary pacing wires and remaining chest
tubes were discontinued without incident. He continues with diuresis and titration of his beta-ramirez. He was started on metformin and Farxiga per diabetes management team. On postop day 3 he is ambulating, Cordis is discontinued and he
continues to progress well. On postop day 4 two-view chest x-ray demonstrated a small left effusion with no other significant abnormalities, he is ambulatory with good pain control on orals. Patient is discharged to home with close follow-up with
the transitional care nurse in [facility] who will see him in a few days
Home medication changes: New Rx provided for Plavix for vein graft patency, recommend x 30 days. Colchicine for postop pericarditis, continue x 1 month. New Farxiga and metformin for his prediabetes, Flexeril and oxycodone to be taken if needed
for postsurgical pain. 5 days of Lasix for fluid overload. Patient to stop his amlodipine at this time due to relative hypotension, this can be resumed as an outpatient as his blood pressure allows. rosuvastatin has been removed from his med list
as patient states he gets severe myalgias and will not continue taking it.
Discharge Plan
-
Patient Disposition: Home (Routine Discharge)
Discharge Diagnosis/Procedures: MVCAD s/p CABG x4
Condition: Good
Diet: Low Fat and Low Cholesterol
Activity: No strenuous activity
Driving Restrictions: Not until seen by your Dr
Bathing Restrictions: OK to Shower
Specialty Instructions: Weigh Daily- Call MD for wt gain/loss 3 lbs overnight/5 lbs in 1 week
Activity Restrictions/Additional Instructions:
ACTIVITY:
-No strenuous activity: no heavy lifting, pushing, pulling anything over 15 pounds for one month
-continue to use stairs as tolerated
DRIVING RESTRICTIONS:
-No driving for one month or until approved by your surgeon
WOUND CARE:
-Shower daily. Use soap & water.
-No lotions, creams or powders on incision area.
DIET:
-continue a low fat/low cholesterol diet.
-IF you are diabetic, continue carb controlled diet.
CARDIAC REHAB:
-Please make appointment to start in 5-6 weeks with your local hospital program. (See Cardiac Rehabilitation Discharge Booklet).
Please call to make appointments for Phase II Cardiac Rehab:
[facility] (12 min from home)
[address]
SPECIALTY INSTRUCTIONS:
-Weigh yourself daily. Call your physician for any weight gain/loss of 3 lbs overnight or 5 lbs in one week.
-REPORT any clicking noise or uneven appearance of your sternum to your surgeon immediately.
-If you smoke, you are instructed to quit. The [place] smoking hotline phone number is [phone]
[phone]
Referrals:
CT Transitional Care Nurse [Outside] - in two to three days
Referral Note:
The Cardiothoracic Transitional Care Nurse will call you to set up a visit in 1-2 days.
Helder Ortiz MD [Active, Cardiology] - 11/25/25 11:20 am
Dontae Hoffman MD [Family Provider, Family Practice] - in three to four weeks
Referral Note: Please make an appiontment in four to six weeks.
Herlinda Nunez MD [Active, Cardiac Surgery] - 11/10/25 10:00 am
Prescriptions:
New
cyclobenzaprine 10 mg Tablet
5 mg PO Q8HPRN PRN (Reason: muscle spasm) Qty: 10 0RF
clopidogrel 75 mg Tablet
75 mg PO DAILY Qty: 30 1RF
colchicine 0.6 mg Tablet
0.3 mg PO DAILY Qty: 14 0RF
metformin 500 mg Tablet
500 mg PO DAILY Qty: 30 1RF
sennosides [Jodi-dominic] 8.6 mg Tablet
8.6 mg PO Q12 PRNQty: 0 0RF
acetaminophen 325 mg Tablet
650 mg PO Q6HPRN PRN (Reason: mild pain,headache,temp >101F ) Qty: 0 0RF
oxycodone 5 mg Tablet
5 mg PO Q6HPRN PRN (Reason: moderate pain) Qty: 5 0RF
dapagliflozin propanediol 10 mg Tablet
10 mg PO DAILY Qty: 30 1RF
furosemide [Lasix] 20 mg tablet
20 mg PO DAILY Qty: 5 0RF
Continued
pantoprazole 40 MG tablet,delayed release (DR/EC)
40 mg PO DAILY
aspirin 81 mg Tablet
81 mg PO DAILY
metoprolol succinate 25 mg Tablet Extended Release 24 Hr
25 mg PO DAILY
Discontinued
ibuprofen 200 MG tablet
400 - 600 mg PO Q6HPRN PRN (Reason: moderate muscle pain)
rosuvastatin 40 mg tablet
40 mg PO DAILY Qty: 30 11RF
nitroglycerin 0.4 mg tablet, sublingual
0.4 mg sublingual [id number] PRN (Reason: chest pain) Qty: 25 2RF
amlodipine 2.5 mg tablet
2.5 mg PO DAILY
Discharge Orders:
Discharge Patient (As Directed); Ordered 10/16/25
Ordered By: Benita Golden
Care Plan Goals
Care Plan Goals:
Problem: Readiness for enhanced knowledge related to diagnosis and treatment plan
Goal: Understand your diagnosis and treatment plan needs, including medications if applicable.
Instructions: Know your diagnosis, underlying causes and treatment plan options, including medications if applicable. Consult with your health care team to learn about your diagnosis and treatment plan, including medications if applicable.
Discharge Date and Time
Discharge Date/Time: 10/16/25 12:29
Print Language: AMHARIC
--- NOTE | 2025-10-16 12:21 | PTCARENOTE ---
Pt was discharged to home with family. Discharge instructions provided and pt verbalized understanding. Prior to dc pt showered without difficulty. personnel monitor and PIV removed prior to leaving. Pt was given written oxycodone prescription along
with electronically sent prescriptions. Pt was escorted out by PCT via wheelchair.
[2025-10-16 17:14] LABS: Glucose - Point of Care 186 mg/dl (70-99)
== END 2025-10-16 12:29 | disposition home or self-care (01) | DRG 235 ==
LOC: IVU 04:48
PROVIDERS: ADMITTING PHYSICIAN Student in an Organized Health Care Education/Training Program; CONSULT PHYSICIAN Internal Medicine Critical Care Medicine; FAMILY PHYSICIAN Family Medicine
PROC: 021209W Bypass Coronary Artery, Three Arteries from Aorta with Autologous Venous Tissue, Open Approach (ICD-10-PCS; 2025-10-12)
PROC: 06BP4ZZ Excision of Right Saphenous Vein, Percutaneous Endoscopic Approach (ICD-10-PCS; 2025-10-12)
PROC: 02L70CK Occlusion of Left Atrial Appendage with Extraluminal Device, Open Approach (ICD-10-PCS; 2025-10-12)
PROC: B24BZZ4 Ultrasonography of Heart with Aorta, Transesophageal (ICD-10-PCS; 2025-10-12)
PROC: 06BQ4ZZ Excision of Left Saphenous Vein, Percutaneous Endoscopic Approach (ICD-10-PCS; 2025-10-12)
PROC: 02100Z9 Bypass Coronary Artery, One Artery from Left Internal Mammary, Open Approach (ICD-10-PCS; 2025-10-12)
PROC: 5A1221Z Performance of Cardiac Output, Continuous (ICD-10-PCS; 2025-10-12)
DX: I25.118 Atherosclerotic heart disease of native coronary artery with other forms of angina pectoris (principal); J95.1 Acute pulmonary insufficiency following thoracic surgery; D62 Acute posthemorrhagic anemia; J98.11 Atelectasis; I30.8 Other forms of acute pericarditis; I10 Essential (primary) hypertension; K22.70 Barrett's esophagus without dysplasia; R73.03 Prediabetes; E66.811 Obesity, class 1; K21.9 Gastro-esophageal reflux disease without esophagitis; E78.5 Hyperlipidemia, unspecified; R73.01 Impaired fasting glucose; E86.1 Hypovolemia; E87.70 Fluid overload, unspecified; R09.02 Hypoxemia; I44.0 Atrioventricular block, first degree; Z79.82 Long term (current) use of aspirin; Z79.899 Other long term (current) drug therapy; Z87.891 Personal history of nicotine dependence; Z68.30 Body mass index [BMI] 30.0-30.9, adult; Z90.49 Acquired absence of other specified parts of digestive tract
CPT/HCPCS: 36415; 71045; 71046; 71250; 80048; 80053; 81003; 82248; 82330; 82565; 82805; 82947; 82962; 83036; 83735; 84132; 84302; 84520; 85014; 85018; 85027; 85049; 85610; 85730; 86706; 86803; 86850; 86900; 86901; 86920; 87070; 87340; 87389; 93005; 93312; 93320; 93325; 93880; 93923; 93931; 94002; 94010; 99406; J2916; P9045

== ENCOUNTER 2025-10-18 18:02 | Emergency (ER) | payer BC, SELFPAY ==
[2025-10-18 18:08] VITALS: BP 128/79
[2025-10-18 18:12] VITALS: BP 128/79
--- NOTE | 2025-10-18 18:22 | W.PN.UPDATE ---
Update Note
Progress Note Update
patient was seen and examined in the emergency room. patient states he was at home opening the mail when there was sudden sharp pain in his right lower extremity. he took 4 81mg ASA and 40mg of Lasix prior to calling EMS> A RLE ultrasound was order
and will follow up on results. A 7 day course of keflex will be ordered.
[2025-10-18] MEDS: DILAUDID 0.5 MG IV ×2 (18:27→20:05)
[2025-10-18 18:43] LABS: Hematocrit 28.9 % (39.0-52.0); Hemoglobin 10.0 g/dL (13.0-18.0); Mean Corp Hgb Conc. 34.6 g/dL (33.0-37.0); Mean Corpuscular Volume 85.8 fL (80.0-94.0); Nucleated Red Blood Cells % 0 % (-); Platelet Count 329 10^3/uL (130-400); Red Cell Dist. Width 13.8 % (11.5-14.5)
[2025-10-18 19:00] VITALS: BP 118/98
[2025-10-18 19:04] LABS: ALT (SGPT) 18 U/L (0-50); AST (SGOT) 23 U/L (17-59); Albumin 3.5 g/dl (3.5-5.0); Alkaline Phosphatase 64 U/L (38-126); Blood Urea Nitrogen 19 mg/dl (9-20); Calcium 9.3 mg/dl (8.4-10.2); Carbon Dioxide 24 mmol/L (22-30); Chloride 104 mmol/L (98-107); Estimated Creatinine Clearance > 125 ml/min; Glucose 131 mg/dl (70-99); Potassium 3.7 mmol/L (3.5-5.1); Sodium 135 mmol/L (135-145); Total Protein 6.4 g/dl (6.3-8.2); eGFR > 60.00
[2025-10-18 22:09] LABS: Hemoglobin 9.6 g/dL (13.0-18.0)
--- NOTE | 2025-10-18 22:39 | ED.GENMED ---
History of Present Illness
General
Chief Complaint: Swelling
Time Seen by Provider: 10/18/25 18:10
History of Present Illness
History of Present Illness:
65-year-old male presents to the emergency department for evaluation of severe right thigh pain and swelling. He is 6 days status post CABG with bilateral greater saphenous vein graft. Doing well and was discharged yesterday, was ambulating about
his home when he developed severe onset of pain. Denies any falls or direct trauma.
Past History
Past History
ED Past Medical History: GERD (Hiatal hernia, remote history of Lopez's esophagus)
ED Past Surgical History: Orthopedic (Bilateral knee arthroscopy)
Social History
Tobacco: Smoker
Alcohol: Occasional
Drug: None
Employment: Employed (Nurse practitioner)
Family History
Family History: Other (Noncontributory)
Review of Systems
Review of Systems
Allergies reviewed?: Yes
All Other Systems: ROS reviewed and negative except as documented in HPI and ROS
Phy Exam
Physical Exam
Physical Exam:
GEN: Well appearing, NAD, WDWN
HEENT: Oral mucosa moist, no scleral icterus
Cardiac: Regular rate
Lung: No respiratory distress, no tachypnea
MSK: Marked ecchymosis of the right medial thigh with palpable cord to the medial thigh along the greater saphenous tract. Strong right DP and PT pulses, calf compartments and thigh compartments are soft
Skin: Good color, no pallor or jaundice, no rashes
Neuro: AO x3, moves all extremities freely
Psych: Calm, cooperative
Scores
Heart Failure Risk
Heart Failure Risk Score: Not Applicable
Course
Orders/Labs/Results
Orders:
Orders
10/18/25 18:19
HYDROmorphone [Dilaudid] 0.5 mg IV NOW STA
10/18/25 18:22
Venous Doppler Lwr Ext Rt [US Perip Venous LOWER Ext RT] Urgent
Comment:
Reason For Exam: RLE swelling/pain
10/18/25 18:31
Type+Screen Urgent
Complete Blood Count/With Diff Urgent
Comprehensive Metabolic Panel Urgent
10/18/25 20:00
Cephalexin Monohydrate [Keflex] 500 mg PO BID
10/18/25 20:02
HYDROmorphone [Dilaudid] 0.5 mg IV NOW STA
10/18/25 22:00
Hemoglobin Routine
10/18/25 22:42
Cephalexin Monohydrate [Keflex] 500 mg PO NOW STA
Abnormal Lab Results
10/18/25 10/18/25
18:31 22:00
WBC 11.9 H 10^3/uL
(4.8-10.8)
RBC 3.37 L 10^6/uL
(4.70-6.10)
Hgb 10.0 L g/dL 9.6 L g/dL
(13.0-18.0) (13.0-18.0)
Hct 28.9 L %
(39.0-52.0)
Abs Immat Gran (auto) 0.2 H 10^3/uL
(0-0.05)
Absolute Neuts (auto) 8.0 H 10^3/uL
(1.4-6.5)
Absolute Monos (auto) 1.1 H 10^3/uL
(0.1-0.6)
Immature Gran % 1.3 H %
(0-0.5)
Lymphocytes % 17.2 L %
(20.5-51.1)
Glucose 131 H mg/dl
(70-99)
10/18/25 22:00
10/18/25 18:31
Vital Signs
Initial and Last Documented VS:
Initial Vital Signs
Pulse Resp BP
92 22 128/79
10/18/25 18:08 10/18/25 18:08 10/18/25 18:08
Last Documented Vital Signs
Temp Pulse Resp BP Pulse Ox
98.6 F 96 20 120/87 99
10/18/25 18:12 10/18/25 22:30 10/18/25 22:59 10/18/25 22:59 10/18/25 22:40
MDM/Problems Addressed
MDM/Problems Addressed:
Patient was seen in consultation by CT surgery. Ultrasound initially reporting GSV clot however reviewed with radiology as the surgical procedure to remove the entirety of his GSV. This is likely hematoma along the venous tract after vein
harvesting. Hemoglobin remained stable, patient will be advised to maintain ambulation with compression wrap and ice
*Pulse Oximetry
SaO2: 99
Oxygen Mode of Delivery: Room air
Patient hypoxic: no
*Critical Care Note
Total Time (30-74mins, 75-104mins- exclusive of procedures): Not Applicable
ED Attending Note
-
Portions of this chart may have been created with voice recognition software.� Occasional wrong word or��sound alike� substitutions may have occurred due to the inherent limitations of voice recognition software.
Discharge Plan
Departure
Patient Disposition: Home (Routine Discharge)
Date of Disposition: 10/18/25
Time of Disposition: 22:39
Patient with high blood pressure during this ER visit?: No
Discharge Problem:
Hematoma of right lower leg
Prescriptions:
New
cephalexin 500 mg capsule
500 mg PO QID 7 Days Qty: 28 0RF
oxycodone 5 mg tablet
5 mg PO Q8H PRN (Reason: Pain) Qty: 5 0RF
No Action
pantoprazole 40 MG tablet,delayed release (DR/EC)
40 mg PO DAILY
aspirin 81 mg Tablet
81 mg PO DAILY
metoprolol succinate 25 mg Tablet Extended Release 24 Hr
25 mg PO DAILY
cyclobenzaprine 10 mg Tablet
5 mg PO Q8HPRN PRN (Reason: muscle spasm) Qty: 10 0RF
clopidogrel 75 mg Tablet
75 mg PO DAILY Qty: 30 1RF
colchicine 0.6 mg Tablet
0.3 mg PO DAILY Qty: 14 0RF
metformin 500 mg Tablet
500 mg PO DAILY Qty: 30 1RF
sennosides [Jodi-dominic] 8.6 mg Tablet
8.6 mg PO Q12 PRNQty: 0 0RF
acetaminophen 325 mg Tablet
650 mg PO Q6HPRN PRN (Reason: mild pain,headache,temp >101F ) Qty: 0 0RF
oxycodone 5 mg Tablet
5 mg PO Q6HPRN PRN (Reason: moderate pain) Qty: 5 0RF
dapagliflozin propanediol 10 mg Tablet
10 mg PO DAILY Qty: 30 1RF
furosemide [Lasix] 20 mg tablet
20 mg PO DAILY Qty: 5 0RF
Referrals:
Dontae Hoffman MD [Family Provider, Family Practice]
Activity Restrictions/Additional Instructions:
Keep leg elevated and ice often. Keep in place to reduce swelling. Continue to ambulate often to mobilize the blood flow and prevent further clotting. Use pain medicine as needed. Follow-up with CT surgery as needed
Interventions
Interventions:
*General Assessment Last Done: 10/18/25 18:04
*Neglect/Abuse Screening Last Done: 10/18/25 18:04
*ED COVID-19 Vaccine History Last Done: 10/18/25 18:04
*ED Influenza Vaccine History Last Done: 10/18/25 18:04
[facility] Fall Risk Assessment Tool Last Done: 10/18/25 18:09
*Risk Screen - Suicide (C-SSRS) Last Done: 10/18/25 18:04
*Nursing Disposition Last Done: 10/18/25 23:00
ED- Cardiac Assessment Last Done: 10/18/25 18:10
ED- Pulmonary Assessment Last Done: 10/18/25 18:10
ED-Skin Assessment Last Done: 10/18/25 18:10
Discharge Date and Time
Discharge Date/Time: 10/18/25 23:00
Print Language: SPANISH
[2025-10-18] MEDS: KEFLEX 500 MG PO (22:50)
[2025-10-18 22:59] VITALS: BP 120/87
== END 2025-10-18 23:00 | disposition home or self-care (01) ==
LOC: EMR 18:02
PROVIDERS: Physician Assistant; EMERGENCY PHYSICIAN Emergency Medicine; FAMILY PHYSICIAN Family Medicine
DX: S80.11XA Contusion of right lower leg, initial encounter (principal); X58.XXXA Exposure to other specified factors, initial encounter; M79.651 Pain in right thigh; K21.9 Gastro-esophageal reflux disease without esophagitis; K44.9 Diaphragmatic hernia without obstruction or gangrene; K22.70 Barrett's esophagus without dysplasia; F17.200 Nicotine dependence, unspecified, uncomplicated; Z98.890 Other specified postprocedural states; Z95.1 Presence of aortocoronary bypass graft
CPT/HCPCS: 99284; 96374; 96376; 80053; 85018; 85025; 86850; 86900; 86901; 93971